=== PATIENT | female | born 1950 | race Caucasian/White ===

== ENCOUNTER 2018-02-03 11:44 | Inpatient (IN) | payer OTHER ==
[2018-02-03 11:49] VITALS: BMI 27.8
--- NOTE | 2018-02-03 14:18 | PDOC ---
History of Present Illness - General Chief Complaint: Bleeding from Anus Stated Complaint: RECTAL BLEED Time Seen by Provider: 02/03/18 13:31 - History of Present Illness Initial Comments: 02/03/18 14:19 67 F with h/o GERD, HTN, anemia, DM, CAD on plavix, presenting to ED with BRBPR. Pt states that she began to have diffuse abdominal pain 2 days ago. This was followed by watery stool with blood clots. Pt also reports nausea without vomiting. Pt had a similar episode last year and was admitted. She has not seen a GI doctor since that admission and has not had a colonoscopy. Pt denies CP/SOB/lightheadedness. Denies hematuria/dysuria. Pt states that she stopped her plavix 2 days ago when she saw blood in her stool. Past History - Past Medical History Allergies/Adverse Reactions: Allergies Allergy/AdvReac Type Severity Reaction Status Date / Time aspirin Allergy Rash Verified 02/03/18 11:45 Home Medications: Ambulatory Orders Sertraline HCl [Zoloft] 100 mg PO DAILY 03/09/12 Meclizine HCl [Bonine] 25 mg PO DAILY PRN 07/04/14 Valsartan [Diovan] 160 mg PO DAILY 07/04/14 Cholecalciferol (Vitamin D3) [Vitamin D -] 2,000 unit PO DAILY 03/01/15 Clopidogrel Bisulfate [Plavix -] 75 mg PO DAILY 03/01/15 Hydroxyzine Pamoate [Vistaril] 100 mg PO DAILY 03/01/15 Albuterol Sulfate Inhaler - [Ventolin HFA Inhaler -] 1 puff IH DAILY 07/28/17 Ascorbic Acid [Vitamin C -] 500 mg PO DAILY 07/28/17 Eletriptan Hydrobromide [Relpax -] 40 mg PO DAILY 07/28/17 Esomeprazole Magnesium 40 mg PO DAILY 07/28/17 Quetiapine Fumarate [Quetiapine Fumarate ER] 50 mg PO DAILY 07/28/17 metroNIDAZOLE [Flagyl -] 500 mg PO TID #80 tablet 07/30/17 Anemia: Yes Asthma: Yes Cardiac Disorders: Yes (? AF) COPD: No DVT: No Dementia: No GI Disorders: Yes (acid reflux) HTN: Yes Hypercholesterolemia: Yes Psychiatric Problems: Yes (anxiety) - Suicide/Smoking/Psychosocial Hx Smoking Status: No Smoking History: Never smoked Have you smoked in the past 12 months: No Number of Cigarettes Smoked Daily: 0 Information on smoking cessation initiated: No Hx Alcohol Use: No Drug/Substance Use Hx: No Substance Use Type: None Hx Substance Use Treatment: No Abd/GI Specific PMHX - Complaint Specific PMHX GERD: Yes Review of Systems - Review of Systems Comments:: 02/03/18 14:22 "GENERAL/CONSTITUTIONAL: No fever or chills. No weakness. HEAD, EYES, EARS, NOSE AND THROAT: No change in vision. No ear pain or discharge. No sore throat. CARDIOVASCULAR: No chest pain or shortness of breath. RESPIRATORY: No cough, wheezing, or hemoptysis. GASTROINTESTINAL: + abdominal pain and BRBPR, No nausea, vomiting, or constipation. GENITOURINARY: No dysuria, frequency, or change in urination. MUSCULOSKELETAL: No joint or muscle swelling or pain. No neck or back pain. SKIN: No rash NEUROLOGIC: No headache, vertigo, loss of consciousness, or change in strength/ sensation. ENDOCRINE: No increased thirst. No abnormal weight change. HEMATOLOGIC/LYMPHATIC: No anemia, easy bleeding, or history of blood clots. ALLERGIC/IMMUNOLOGIC: No hives or skin allergy. " *Physical Exam - Vital Signs Last Vital Signs Temp Pulse Resp BP Pulse Ox 99.2 F 98 H 18 119/79 100 02/03/18 11:46 02/03/18 11:46 02/03/18 11:46 02/03/18 11:46 02/03/18 11:46 - Physical Exam Comments: 02/03/18 14:22 "GENERAL: Awake, alert, and fully oriented, in no acute distress. HEAD: No signs of trauma EYES: PERRLA, EOMI, sclera anicteric, conjunctiva clear ENT: Auricles normal inspection, hearing grossly normal, nares patent, oropharynx clear without exudates. Moist mucosa NECK: Nontender, no stepoffs, Normal ROM, supple, no lymphadenopathy, JVD, or masses LUNGS: Breath sounds equal, clear to auscultation bilaterally. No wheezes, and no crackles HEART: Regular rate and rhythm, normal S1 and S2, no murmurs, rubs or gallops ABDOMEN: + Diffuse abdominal tenderness, L>R RECTAL: + External hemorrhoid non-bleeding, + jailene blood in rectal vault EXTREMITIES: Normal range of motion, no edema. No clubbing or cyanosis. No cords, erythema, or tenderness NEUROLOGICAL: Cranial nerves II through XII intact. 5/5 strength and sensation in all extremities, Normal speech, normal gait, normal cerebellar function SKIN: Warm, Dry, normal turgor, no rashes or lesions noted. " ED Treatment Course - LABORATORY CBC & Chemistry Diagram: 02/03/18 14:20 02/03/18 14:22 Medical Decision Making - Medical Decision Making 02/03/18 14:23 67 F with BRBPR on plavix. Also with diffuse abdominal tenderness on exam. Will r/o colitis vs mesenteric ischemia. - Labs, lactate - CTAP - Admit 02/03/18 18:[address] unremarkable. Will admit to obs for GIB on plavix. 02/03/18 18:32 Rpt CBC ordered. Pt admitted to Dr. Lerma *DC/Admit/Observation/Transfer Diagnosis at time of Disposition: Rectal bleeding - Discharge Dispostion Decision to Admit order: Yes - Referrals Referrals: Jah Anne MD [Primary Care Provider] - - Patient Instructions - Post Discharge Activity - Attestations Physician Attestion: 02/03/18 18:32 I, Dr. Kai Bella MD, attest that this document has been prepared under my direction and personally reviewed by me in its entirety. I further attest, that it accurately reflects all work, treatment, procedures and medical decision -making performed by me.
[2018-02-03 14:27] LABS: BASO % 0.5 % (0-2.0); EOS % 0.3 % (0-4.5); HEMATOCRIT 38.5 % (32.4-45.2); HEMOGLOBIN 12.6 GM/dL (10.7-15.3); LYMPH % 15.8 % (8-40); MCH 29.8 pg (25.7-33.7); MCHC 32.7 g/dl (32.0-36.0); MEAN CELL VOLUME 91.3 fl (80-96); MEAN PLT VOLUME 11.8 fl (7.5-11.1); MONO % 4.2 % (3.8-10.2); NEUT % 79.2 % (42.8-82.8); PLATELET COUNT 137 K/MM3 (134-434); RBC 4.22 M/mm3 (3.60-5.2); WHITE BLOOD COUNT 9.3 K/mm3 (4.0-10.0)
[2018-02-03] MEDS ORDERED: ACETAMINOPHEN 1000 MG/100 ML VIAL (NON FORMULARY) IVPB ONE (14:27)
[2018-02-03] MEDS ORDERED: SODIUM CHLORIDE 1,000 ML IV STA (14:27)
[2018-02-03] MEDS ORDERED: PANTOPRAZOLE SODIUM 40 MG in SODIUM CHLORIDE 100 ML IVPB ONE (14:27)
[2018-02-03 14:42] LABS: INR 0.95 (0.82-1.09); PROTHROMBIN TIME (PATIENT) 10.7 SEC (9.7-13.0)
[2018-02-03 14:45] LABS: ACTIVATED PTT 25.4 SECONDS (26.9-34.4)
[2018-02-03 14:46] LABS: URINE APPEARANCE SLCLOUDY; URINE BILIRUBIN NEGATIVE (<2.0 mg/dL); URINE COLOR YELLOW; URINE GLUCOSE (UA) NEGATIVE (NEGATIVE); URINE KETONE NEGATIVE (NEGATIVE); URINE LEUK ESTERASE NEGATIVE (NEGATIVE); URINE NITRITE NEGATIVE (NEGATIVE); URINE PROTEIN NEGATIVE (NEGATIVE); URINE UROBILINOGEN NEGATIVE mg/dL (0.2-1.0)
[2018-02-03 14:52] LABS: ANION GAP 7 (8-16); BILIRUBIN,TOTAL 0.6 mg/dL (0.2-1.0); BLOOD UREA NITROGEN 22 mg/dL (7-18); CALCIUM 8.5 mg/dL (8.5-10.1); CHLORIDE 105 mmol/L (98-107); CO2 27 mmol/L (21-32); GLUCOSE,RANDOM 100 mg/dL (74-106); LIPASE 156 U/L (73-393); SGPT/ALT 14 U/L (12-78); SODIUM 139 mmol/L (136-145)
[2018-02-03 14:55] LABS: ALK PHOS 60 U/L (45-117)
[2018-02-03 14:57] LABS: POTASSIUM 4.3 mmol/L (3.5-5.1); SGOT/AST 22 U/L (15-37)
[2018-02-03] MEDS ORDERED: PANTOPRAZOLE SODIUM 40 MG/100 ML BAG IVPB ONE (15:03)
[2018-02-03] MEDS ORDERED: ACETAMINOPHEN INJECTION 100 ML IVPB ONE (15:03)
[2018-02-03] MEDS ORDERED: SODIUM CHLORIDE 1,000 ML IV SCH (18:45)
[2018-02-03 19:15] LABS: BASO % 0.5 % (0-2.0); EOS % 0.3 % (0-4.5); HEMATOCRIT 34.4 % (32.4-45.2); HEMOGLOBIN 11.3 GM/dL (10.7-15.3); LYMPH % 25.3 % (8-40); MCH 29.8 pg (25.7-33.7); MCHC 32.7 g/dl (32.0-36.0); MEAN CELL VOLUME 90.9 fl (80-96); MEAN PLT VOLUME 12.4 fl (7.5-11.1); MONO % 6.8 % (3.8-10.2); NEUT % 67.1 % (42.8-82.8); PLATELET COUNT 141 K/MM3 (134-434); RBC 3.78 M/mm3 (3.60-5.2); RDW 14.8 % (11.6-15.6); WHITE BLOOD COUNT 7.7 K/mm3 (4.0-10.0)
--- NOTE | 2018-02-03 20:01 | HP ---
Admitting History and Physical - Primary Care Physician PCP: Steven Lerma - Admission Chief Complaint: rectal bleeding History of Present Illness: 67 F with h/o GERD, HTN, anemia, DM, CAD on plavix, presenting to ED with BRBPR. Pt states that she began to have diffuse abdominal pain 2 days ago. This was followed by watery stool with blood clots. Pt also reports nausea without vomiting. Pt had a similar episode last year and was admitted. She has not seen a GI doctor since that admission and has not had a colonoscopy. h/o similar episodse last year Pt states that she stopped her plavix 2 days ago when she saw blood in her stool. 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) Cardiovascular: Yes: HTN, Hyperlipdemia Pulmonary: Yes: Asthma Gastrointestinal: Yes: GERD, Peptic Ulcer Disease - Past Surgical History Past Surgical History: Yes: Hysterectomy - Smoking History Smoking history: Never smoked Have you smoked in the past 12 months: No Aproximately how many cigarettes per day: 0 - Alcohol/Substance Use Hx Alcohol Use: No History of Substance Use: reports: None - Social History ADL: Independent Occupation: retired History of Recent Travel: No Home Medications - Allergies Allergies/Adverse Reactions: Allergies Allergy/AdvReac Type Severity Reaction Status Date / Time aspirin Allergy Rash Verified 02/03/18 11:45 - Home Medications Home Medications: Ambulatory Orders Sertraline HCl [Zoloft] 100 mg PO DAILY 03/09/12 Meclizine HCl [Bonine] 25 mg PO DAILY PRN 07/04/14 Valsartan [Diovan] 160 mg PO DAILY 07/04/14 Cholecalciferol (Vitamin D3) [Vitamin D -] 2,000 unit PO DAILY 03/01/15 Clopidogrel Bisulfate [Plavix -] 75 mg PO DAILY 03/01/15 Hydroxyzine Pamoate [Vistaril] 100 mg PO DAILY 03/01/15 Albuterol Sulfate Inhaler - [Ventolin HFA Inhaler -] 1 puff IH DAILY PRN Ascorbic Acid [Vitamin C -] 500 mg PO DAILY 07/28/17 Eletriptan Hydrobromide [Relpax -] 40 mg PO DAILY 07/28/17 Esomeprazole Magnesium 40 mg PO DAILY 07/28/17 Quetiapine Fumarate [Quetiapine Fumarate ER] 50 mg PO HS 07/28/17 metroNIDAZOLE [Flagyl -] 500 mg PO TID #80 tablet 07/30/17 Family Disease History - Family Disease History Family Disease History: Heart Disease: Father, Mother Physical Examination Vital Signs: Vital Signs Temperature 99.2 F 02/03/18 11:46 Pulse Rate 98 H 02/03/18 11:46 Respiratory Rate 18 02/03/18 11:46 Blood Pressure 119/79 02/03/18 11:46 O2 Sat by Pulse Oximetry (%) 100 02/03/18 11:46 Constitutional: Yes: No Distress HENT: Yes: Atraumatic Neck: Yes: Supple Cardiovascular: Yes: Regular Rate and Rhythm Respiratory: Yes: CTA Bilaterally Gastrointestinal: Yes: Normal Bowel Sounds, Tenderness Extremities: Yes: WNL Edema: No Peripheral Pulses WNL: Yes Neurological: Yes: Alert, Oriented Labs: CBC, BMP 02/03/18 19:09 02/03/18 14:22 Imaging - Results Cat Scan: Report Reviewed Problem List - Problems (1) Rectal bleeding Assessment/Plan: will monitor gi consult fu cbc Code(s): K62.5 - HEMORRHAGE OF ANUS AND RECTUM (2) Abdominal pain Code(s): R10.9 - UNSPECIFIED ABDOMINAL PAIN (3) Diabetes Code(s): E11.9 - TYPE 2 DIABETES MELLITUS WITHOUT COMPLICATIONS Qualifiers: (4) HTN (hypertension) Code(s): I10 - ESSENTIAL (PRIMARY) HYPERTENSION Qualifiers: Assessment/Plan Laboratory Tests 02/03/18 02/03/18 02/03/18 13:30 14:20 14:20 WBC 9.3 D RBC 4.22 Hgb 12.6 D Hct 38.5 MCV 91.3 MCH 29.8 MCHC 32.7 RDW 15.0 Plt Count 137 D MPV 11.8 H Neutrophils % 79.2 D Lymphocytes % 15.8 D Monocytes % 4.2 Eosinophils % 0.3 Basophils % 0.5 PT with INR 10.70 INR 0.95 PTT (Actin FS) 25.4 L Sodium Potassium Chloride Carbon Dioxide Anion Gap BUN Creatinine Creat Clearance w eGFR Random Glucose Lactic Acid Calcium Total Bilirubin AST ALT Alkaline Phosphatase Creatine Kinase Troponin I Total Protein Albumin Lipase Urine Color Urine Appearance Urine pH Ur Specific Wood Urine Protein Urine Glucose (UA) Urine Ketones Urine Blood Urine Nitrite Urine Bilirubin Urine Urobilinogen Ur Leukocyte Esterase Blood Type B NEGATIVE Antibody Screen Negative 02/03/18 02/03/18 02/03/18 14:20 14:20 14:22 WBC RBC Hgb Hct MCV MCH MCHC RDW Plt Count MPV Neutrophils % Lymphocytes % Monocytes % Eosinophils % Basophils % PT with INR INR PTT (Actin FS) Sodium Cancelled 139 Potassium Cancelled 4.3 Chloride Cancelled 105 Carbon Dioxide Cancelled 27 Anion Gap Cancelled 7 L BUN Cancelled 22 H Creatinine Cancelled 1.0 Creat Clearance w eGFR Cancelled 55.64 Random Glucose Cancelled 100 Lactic Acid 1.4 Calcium Cancelled 8.5 Total Bilirubin Cancelled 0.6 D AST Cancelled 22 ALT Cancelled 14 Alkaline Phosphatase Cancelled 60 Creatine Kinase 133 Troponin I < 0.02 Total Protein Cancelled 8.0 Albumin Cancelled 4.0 Lipase Cancelled 156 Urine Color Urine Appearance Urine pH Ur Specific Wood Urine Protein Urine Glucose (UA) Urine Ketones Urine Blood Urine Nitrite Urine Bilirubin Urine Urobilinogen Ur Leukocyte Esterase Blood Type Antibody Screen 02/03/18 02/03/18 14:27 19:09 WBC 7.7 RBC 3.78 Hgb 11.3 D Hct 34.4 MCV 90.9 MCH 29.8 MCHC 32.7 RDW 14.8 Plt Count 141 MPV 12.4 H Neutrophils % 67.1 Lymphocytes % 25.3 D Monocytes % 6.8 Eosinophils % 0.3 Basophils % 0.5 PT with INR INR PTT (Actin FS) Sodium Potassium Chloride Carbon Dioxide Anion Gap BUN Creatinine Creat Clearance w eGFR Random Glucose Lactic Acid Calcium Total Bilirubin AST ALT Alkaline Phosphatase Creatine Kinase Troponin I Total Protein Albumin Lipase Urine Color Yellow Urine Appearance Slcloudy Urine pH 5.0 D Ur Specific Wood 1.026 Urine Protein Negative Urine Glucose (UA) Negative Urine Ketones Negative Urine Blood Negative Urine Nitrite Negative Urine Bilirubin Negative Urine Urobilinogen Negative Ur Leukocyte Esterase Negative Blood Type Antibody Screen Active Medications Generic Name Dose Route Start Last Admin Trade Name Freq PRN Reason Stop Dose Admin Sodium Chloride 1,000 mls @ 75 mls/hr 02/03/18 18:45 Normal Saline - IV ASDIR [facility]
[2018-02-03] MEDS: SODIUM CHLORIDE 1,000 ML IV SCH (20:39)
[2018-02-03] MEDS ORDERED: ZOLPIDEM TARTRATE 5 MG TABLET PO ONE (23:30)
[2018-02-04 08:19] LABS: BASO % 0.4 % (0-2.0); EOS % 0.7 % (0-4.5); HEMATOCRIT 31.9 % (32.4-45.2); HEMOGLOBIN 10.6 GM/dL (10.7-15.3); LYMPH % 45.5 % (8-40); MCH 30.3 pg (25.7-33.7); MCHC 33.4 g/dl (32.0-36.0); MEAN CELL VOLUME 90.8 fl (80-96); MEAN PLT VOLUME 11.9 fl (7.5-11.1); MONO % 8.4 % (3.8-10.2); PLATELET COUNT 104 K/MM3 (134-434); RBC 3.51 M/mm3 (3.60-5.2); RDW 14.8 % (11.6-15.6); WHITE BLOOD COUNT 5.5 K/mm3 (4.0-10.0)
--- NOTE | 2018-02-04 08:52 | CONSULT ---
Consult Consult Specialty:: General Surgery Referred by:: Florentin LIMON Reason for Consultation:: Rectal bleeding - History of Present Illness Chief Complaint: rectal bleeding History of Present Illness: 67 yo female PMH HTN, DM, obesity, asthma, DVT CAD on plavix, GERD, presenting to ED with BRBPR yesterday. She has a long history of similar episodes 5 since 2012, last was July 2017. With this episode she states that she began to have diffuse abdominal pain 2 days ago prior to bleeding, she was constipated during these days as well. This was followed by watery stool with blood clots. Pt also reports nausea without vomiting, no hematemesis . Surgery has been discussed previously but she considered her lack of insurance as prohibitive. She has not seen a GI doctor since her previous admission and has not had a recent colonoscopy. She states that she stopped her plavix 2 days ago when she saw blood in her stool. No personal history of colon cancer or unexplained weight loss. Previous CT scan 08/09 showed concentric thickening of descending and sigmoid colon. The scan this admission did not have any notable findings. Denied previous abdominal surgery. We were asked to assess. 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) Cardio/Vascular: Yes: HTN, Hyperlipdemia Pulmonary: Yes: Asthma Gastrointestinal: Yes: GERD, Peptic Ulcer Disease - Past Surgical History Past Surgical History: Yes: Hysterectomy - Alcohol/Substance Use Hx Alcohol Use: No History of Substance Use: reports: None - Smoking History Smoking history: Never smoked Have you smoked in the past 12 months: No Aproximately how many cigarettes per day: 0 - Social History ADL: Independent Occupation: retired History of Recent Travel: No Home Medications - Allergies Allergies/Adverse Reactions: Allergies Allergy/AdvReac Type Severity Reaction Status Date / Time aspirin Allergy Rash Verified 02/03/18 11:45 - Home Medications Home Medications: Ambulatory Orders Sertraline HCl [Zoloft] 100 mg PO DAILY 03/09/12 Meclizine HCl [Bonine] 25 mg PO DAILY PRN 07/04/14 Valsartan [Diovan] 160 mg PO DAILY 07/04/14 Cholecalciferol (Vitamin D3) [Vitamin D -] 2,000 unit PO DAILY 03/01/15 Clopidogrel Bisulfate [Plavix -] 75 mg PO DAILY 03/01/15 Hydroxyzine Pamoate [Vistaril] 100 mg PO DAILY 03/01/15 Albuterol Sulfate Inhaler - [Ventolin HFA Inhaler -] 1 puff IH DAILY 07/28/17 Ascorbic Acid [Vitamin C -] 500 mg PO DAILY 07/28/17 Eletriptan Hydrobromide [Relpax -] 40 mg PO DAILY 07/28/17 Esomeprazole Magnesium 40 mg PO DAILY 07/28/17 Quetiapine Fumarate [Quetiapine Fumarate ER] 50 mg PO DAILY 07/28/17 metroNIDAZOLE [Flagyl -] 500 mg PO TID #80 tablet 07/30/17 Family Disease History - Family Disease History Family Disease History: Heart Disease: Father, Mother Review of Systems - Review of Systems Constitutional: denies: Chills, Fever, Unintentional Wgt. Loss Eyes: denies: Blurred Vision, Recent Change in Vision HENT: reports: Difficult Swallowing. denies: Throat Pain Neck: denies: Decreased ROM, Lumps, Tenderness Cardiovascular: denies: Chest Pain Respiratory: denies: Cough, SOB Gastrointestinal: reports: Abdominal Pain, Constipation, Indigestion, Rectal Bleeding Genitourinary: denies: Burning, Discharge, Dysuria Breasts: reports: No Symptoms Reported. denies: Pain Musculoskeletal: denies: Muscle Pain, Muscle Weakness Integumentary: denies: Lesions, Lump, Pruritis Neurological: denies: Headache, Seizure, Syncope Endocrine: denies: Excessive Sweating, Unexplained Weight Gain, Unexplained Weight Loss Hematology/Lymphatic: denies: Easily Bruised, Excessive Bleeding Psychiatric: denies: Anxiety, Depression Physical Exam Vital Signs: Vital Signs Temperature 98.3 F 02/04/18 06:42 Pulse Rate 69 02/04/18 06:42 Respiratory Rate 18 02/04/18 06:42 Blood Pressure 120/53 02/04/18 06:42 O2 Sat by Pulse Oximetry (%) 99 02/03/18 22:46 Vital Signs Period Temp Pulse Resp BP Sys/[place] Pulse Ox Last 24 Hr 98.1 F-99.3 F 67-98 18-20 119-137/53-84 99-100 Constitutional: Yes: No Distress, Calm, Obese Eyes: Yes: Conjunctiva Clear, EOM Intact HENT: Yes: Atraumatic, Normocephalic Neck: Yes: Supple, Trachea Midline Cardiovascular: Yes: Regular Rate and Rhythm, S1, S2 Respiratory: Yes: Regular, CTA Bilaterally Gastrointestinal: Yes: Normal Bowel Sounds, Soft, Abdomen, Obese, Rectal Bleeding. No: Ascites, Distention ...Rectal Exam: Yes: Sphincter Tone Normal. No: Hemorrhoids/External, Inflammation, Mass Renal/: No: CVA Tenderness - Left, CVA Tenderness - Right Extremities: No: Cool, Cyanosis Edema: No Peripheral Pulses WNL: Yes Integumentary: Yes: Venous Stasis Changes. No: Jaundice, Rash Neurological: Yes: Alert, Oriented Psychiatric: Yes: Alert, Oriented Imaging - Results Cat Scan: Report Reviewed, Image Reviewed (no acute pathology identified this scan) Problem List - Problems (1) Rectal bleeding Assessment/Plan: 67 yo female MMP with rectal bleeding and vague abdominal pain, will need better localization of the bleeding source in order to address if this patient should be offered surgery NPO and IVF hydration Type and screen up to date Transfuse as needed GI Evaluation for upper and lower endoscopy during this admission given history will follow for serial exams Thank you for the opportunity to participate in the care of this patient. Code(s): K62.5 - HEMORRHAGE OF ANUS AND RECTUM (2) Asthma Code(s): J45.909 - UNSPECIFIED ASTHMA, UNCOMPLICATED Qualifiers: Asthma severity: mild Asthma persistence: intermittent Asthma complication type: unspecified Qualified Code(s): J45.20 - Mild intermittent asthma, uncomplicated (3) CAD (coronary artery disease) Code(s): I25.10 - ATHSCL HEART DISEASE OF [place] CORONARY ARTERY W/O ANG PCTRS Qualifiers: Coronary Disease-Associated Artery/Lesion type: tribe artery [place] vs. transplanted heart: tribe heart Associated angina: angina presence unspecified Qualified Code(s): I25.10 - Atherosclerotic heart disease of [place] coronary artery without angina pectoris (4) Diabetes Code(s): E11.9 - TYPE 2 DIABETES MELLITUS WITHOUT COMPLICATIONS Qualifiers: (5) Gastritis Code(s): K29.70 - GASTRITIS, UNSPECIFIED, WITHOUT BLEEDING (6) HTN (hypertension) Code(s): I10 - ESSENTIAL (PRIMARY) HYPERTENSION Qualifiers:
[2018-02-04 08:56] LABS: ANION GAP 7 (8-16); BLOOD UREA NITROGEN 16 mg/dL (7-18); CALCIUM 7.8 mg/dL (8.5-10.1); CHLORIDE 109 mmol/L (98-107); CO2 27 mmol/L (21-32); CREATININE 0.7 mg/dL (0.55-1.02); GLUCOSE,RANDOM 85 mg/dL (74-106); POTASSIUM 4.9 mmol/L (3.5-5.1); SGOT/AST 12 U/L (15-37); SGPT/ALT 12 U/L (12-78); SODIUM 143 mmol/L (136-145)
[2018-02-04 08:58] LABS: ALK PHOS 42 U/L (45-117); BILIRUBIN,TOTAL 0.8 mg/dL (0.2-1.0)
[2018-02-04] MEDS: SODIUM CHLORIDE 1,000 ML IV SCH (10:39)
[2018-02-04] MEDS: PANTOPRAZOLE SODIUM 40 MG VIAL IVPUSH SCH (10:39)
--- NOTE | 2018-02-04 11:56 | EKG ---
Test Reason : Blood Pressure : / mmHG Vent. Rate : 065 BPM Atrial Rate : 065 BPM P-R Int : 150 ms QRS Dur : 068 ms QT Int : 420 ms P-R-T Axes : 062 046 064 degrees QTc Int : 436 ms NORMAL SINUS RHYTHM NORMAL ECG WHEN COMPARED WITH ECG OF 28-JUL-2017 10:23, NO SIGNIFICANT CHANGE WAS FOUND Confirmed by MD KRAIG, PHIL ([id number]) on 02/04/2018 11:55:57 AM Referred By: Confirmed By:PHIL CORNELL MD
--- NOTE | 2018-02-04 17:04 | PN ---
Progress Note, Physician History of Present Illness: no bloody stools - Current Medication List Current Medications: Active Medications Acetaminophen (Ofirmev Injection -) 1,000 mg IVPB Q8H PRN PRN Reason: PAIN 4-6 Sodium Chloride (Normal Saline -) 1,000 mls @ 75 mls/hr IV ASDIR [facility] Last Admin: 02/04/18 10:39 Dose: 75 mls/hr Pantoprazole Sodium (Protonix Iv) 40 mg IVPUSH DAILY [facility] Last Admin: 02/04/18 10:39 Dose: 40 mg - Objective Vital Signs: Vital Signs Temperature 98.4 F 02/04/18 13:53 Pulse Rate 68 02/04/18 13:53 Respiratory Rate 18 02/04/18 13:53 Blood Pressure 121/69 02/04/18 13:53 O2 Sat by Pulse Oximetry (%) 99 02/03/18 22:46 Constitutional: Yes: No Distress HENT: Yes: Atraumatic Neck: Yes: Supple Cardiovascular: Yes: Regular Rate and Rhythm Respiratory: Yes: CTA Bilaterally Gastrointestinal: Yes: Normal Bowel Sounds, Tenderness (llq much improved) Extremities: Yes: WNL Edema: No Peripheral Pulses WNL: Yes Neurological: Yes: Alert, Oriented Labs: CBC, BMP 02/04/18 06:50 02/04/18 06:50 INR, PTT INR 0.95 (0.82-1.09) 02/03/18 14:20 Problem List - Problems (1) Rectal bleeding Assessment/Plan: will monitor...no more bloody stolls gi consult fu cbc Code(s): K62.5 - HEMORRHAGE OF ANUS AND RECTUM (2) Abdominal pain Code(s): R10.9 - UNSPECIFIED ABDOMINAL PAIN (3) Diabetes Assessment/Plan: stable Code(s): E11.9 - TYPE 2 DIABETES MELLITUS WITHOUT COMPLICATIONS Qualifiers: (4) HTN (hypertension) Assessment/Plan: stable , not on any meds Code(s): I10 - ESSENTIAL (PRIMARY) HYPERTENSION Qualifiers:
[2018-02-04] MEDS: ACETAMINOPHEN 1000 MG/100 ML VIAL (NON FORMULARY) IVPB PRN (17:32)
[2018-02-04] MEDS: SERTRALINE HCL 50 MG TABLET (FP) PO SCH (18:39)
--- NOTE | 2018-02-04 20:02 | CON.GI ---
Consult Consult Specialty:: GI Reason for Consultation:: gastrointestinal bleeding, chronic - History of Present Illness History of Present Illness: chart reviewed. Events noted. As per initial intake: 67 yo female PMH HTN, DM , obesity, asthma, DVT CAD on plavix, GERD, presenting to ED with BRBPR yesterday. She has had 5 episodes since 2012. With this episode she began to have diffuse abdominal pain 2 days ago prior to bleeding. This was followed by watery stool with blood clots. Pt also reports nausea without vomiting, no hematemesis . She has not seen a GI doctor since her previous admission and has not had a recent colonoscopy. She states that she stopped her plavix 2 days ago when she saw blood in her stool. No personal history of colon cancer or unexplained weight loss. Previous CT scan 08/09 showed concentric thickening of descending and sigmoid colon. The scan this admission did not have any notable findings. Denied previous abdominal surgery. We were asked to assess. At the time of this exam patient reports no abdominal symptoms, or ongoing bleeding. Tolerating liquid diet. Denies dysphagia, odynophagia, nausea, jaundice, low-grade fever, unintentional weight loss, changes in stool caliber, melena between episodes of bleeding. No history of gastric, duodenal ulcers, esophagitis, gastritis, diverticulosis, angiectasia, significant intracolonic lesions otherwise. A prior CAT scan as above. Negative CT on this admission. No recent endoscopic workup. On antiplatelet therapy at home. - History Source History Provided By: Patient, Medical Record - Past Medical History [employer]: Yes: Other (migraine) Cardio/Vascular: Yes: HTN, Hyperlipdemia Pulmonary: Yes: Asthma Gastrointestinal: Yes: GERD, Peptic Ulcer Disease - Past Surgical History Past Surgical History: Yes: Hysterectomy - Alcohol/Substance Use Hx Alcohol Use: No History of Substance Use: reports: None - Smoking History Smoking history: Never smoked Have you smoked in the past 12 months: No Aproximately how many cigarettes per day: 0 - Social History ADL: Independent Occupation: retired History of Recent Travel: No Home Medications - Allergies Allergies/Adverse Reactions: Allergies Allergy/AdvReac Type Severity Reaction Status Date / Time aspirin Allergy Rash Verified 02/03/18 11:45 - Home Medications Home Medications: Ambulatory Orders Sertraline HCl [Zoloft] 100 mg PO DAILY 03/09/12 Meclizine HCl [Bonine] 25 mg PO DAILY PRN 07/04/14 Valsartan [Diovan] 160 mg PO DAILY 07/04/14 Cholecalciferol (Vitamin D3) [Vitamin D -] 2,000 unit PO DAILY 03/01/15 Clopidogrel Bisulfate [Plavix -] 75 mg PO DAILY 03/01/15 Hydroxyzine Pamoate [Vistaril] 100 mg PO DAILY 03/01/15 Albuterol Sulfate Inhaler - [Ventolin HFA Inhaler -] 1 puff IH DAILY PRN Ascorbic Acid [Vitamin C -] 500 mg PO DAILY 07/28/17 Eletriptan Hydrobromide [Relpax -] 40 mg PO DAILY 07/28/17 Esomeprazole Magnesium 40 mg PO DAILY 07/28/17 Quetiapine Fumarate [Quetiapine Fumarate ER] 50 mg PO HS 07/28/17 metroNIDAZOLE [Flagyl -] 500 mg PO TID #80 tablet 07/30/17 Family Disease History - Family Disease History Family History: Unremarkable Family Disease History: Heart Disease: Father, Mother Review of Systems Findings/Remarks: As per H&P and HPI Physical Exam-GI Vital Signs: Vital Signs Temperature 98.3 F 02/04/18 17:10 Pulse Rate 69 02/04/18 17:10 Respiratory Rate 18 02/04/18 17:10 Blood Pressure 123/77 02/04/18 17:10 O2 Sat by Pulse Oximetry (%) 99 02/04/18 09:00 Constitutional: Yes: Well Nourished, No Distress, Calm Eyes: Yes: Conjunctiva Clear HENT: Yes: Atraumatic Neck: Yes: Supple Cardiovascular: Yes: Regular Rate and Rhythm Respiratory: Yes: Regular ...Auscultate: Yes: Normoactive Bowel Sounds ...Palpate: Yes: Soft. No: Firm/Rigid, Guarding, Mass, Tenderness, Tenderness, Rebound Neurological: Yes: Alert, Oriented Labs: CBC, BMP 02/04/18 06:50 02/04/18 06:50 INR, PTT INR 0.95 (0.82-1.09) 02/03/18 14:20 Laboratory Last Values WBC 5.5 K/mm3 (4.0-10.0) 02/04/18 06:50 RBC 3.51 M/mm3 (3.60-5.2) L 02/04/18 06:50 Hgb 10.6 GM/dL (10.7-15.3) L 02/04/18 06:50 Hct 31.9 % (32.4-45.2) L 02/04/18 06:50 MCV 90.8 fl (80-96) 02/04/18 06:50 MCH 30.3 pg (25.7-33.7) 02/04/18 06:50 MCHC 33.4 g/dl (32.0-36.0) 02/04/18 06:50 RDW 14.8 % (11.6-15.6) 02/04/18 06:50 Plt Count 104 K/MM3 (134-434) L D 02/04/18 06:50 MPV 11.9 fl (7.5-11.1) H 02/04/18 06:50 Neutrophils % 45.0 % (42.8-82.8) D 02/04/18 06:50 Lymphocytes % 45.5 % (8-40) H D 02/04/18 06:50 Monocytes % 8.4 % (3.8-10.2) 02/04/18 06:50 Eosinophils % 0.7 % (0-4.5) D 02/04/18 06:50 Basophils % 0.4 % (0-2.0) 02/04/18 06:50 PT with INR 10.70 SEC (9.7-13.0) 02/03/18 14:20 INR 0.95 (0.82-1.09) 02/03/18 14:20 PTT (Actin FS) 25.4 SECONDS (26.9-34.4) L 02/03/18 14:20 Sodium 143 mmol/L (136-145) 02/04/18 06:50 Potassium 4.9 mmol/L (3.5-5.1) 02/04/18 06:50 Chloride 109 mmol/L (98-107) H 02/04/18 06:50 Carbon Dioxide 27 mmol/L (21-32) 02/04/18 06:50 Anion Gap 7 (8-16) L 02/04/18 06:50 BUN 16 mg/dL (7-18) 02/04/18 06:50 Creatinine 0.7 mg/dL (0.55-1.02) 02/04/18 06:50 Creat Clearance w eGFR > 60 (>60) 02/04/18 06:50 POC Glucometer 102 UNITS (80-120) 02/04/18 11:37 Random Glucose 85 mg/dL (74-106) 02/04/18 06:50 Lactic Acid 1.4 mmol/L (0.0-2.0) 02/03/18 14:20 Calcium 7.8 mg/dL (8.5-10.1) L 02/04/18 06:50 Total Bilirubin 0.8 mg/dL (0.2-1.0) D 02/04/18 06:50 AST 12 U/L (15-37) L 02/04/18 06:50 ALT 12 U/L (12-78) 02/04/18 06:50 Alkaline Phosphatase 42 U/L (45-117) L 02/04/18 06:50 Creatine Kinase 133 IU/L (26-192) 02/03/18 14:22 Troponin I < 0.02 ng/ml (0.00-0.05) 02/03/18 14:22 Total Protein 6.0 g/dl (6.4-8.2) L 02/04/18 06:50 Albumin 3.0 g/dl (3.4-5.0) L 02/04/18 06:50 Lipase 156 U/L (73-393) 02/03/18 14:22 Urine Color Yellow 02/03/18 14:27 Urine Appearance Slcloudy 02/03/18 14:27 Urine pH 5.0 (5.0-8.0) D 02/03/18 14:27 Ur Specific [place] 1.026 (1.001-1.035) 02/03/18 14:27 Urine Protein Negative (NEGATIVE) 02/03/18 14:27 Urine Glucose (UA) Negative (NEGATIVE) 02/03/18 14:27 Urine Ketones Negative (NEGATIVE) 02/03/18 14:27 Urine Blood Negative (NEGATIVE) 02/03/18 14:27 Urine Nitrite Negative (NEGATIVE) 02/03/18 14:27 Urine Bilirubin Negative (<2.0 mg/dL) 02/03/18 14:27 Urine Urobilinogen Negative mg/dL (0.2-1.0) 02/03/18 14:27 Ur Leukocyte Esterase Negative (NEGATIVE) 02/03/18 14:27 Blood Type B NEGATIVE 02/03/18 13:30 Antibody Screen Negative 02/03/18 13:30 Imaging - Results Cat Scan: Report Reviewed Problem List - Problems (1) Hematochezia Code(s): K92.1 - MELENA (2) Adverse effect of antiplatelet agent Code(s): T45.7X5A - ADVERSE EFFECT OF ANTICOAG ANTAG, VIT K AND OTH COAG, INIT Assessment/Plan A 67-year-old female on antiplatelet therapy with bright red blood per rectum and generalized abdominal pain. Hemoglobin decrease by 2 g since admission. At the time of the exam no stigmata of ongoing gastrointestinal bleed. Asymptomatic. Bleeding appears to be recurrent per history. Plan upper and lower endoscopy to evaluate for intraluminal lesions including malignancy. EGD and colonoscopy discussed with the patient. She agrees with the plan. ( Indonesian-speaking)
[2018-02-04] MEDS: FLUTICASONE/SALMETEROL 100 MCG/50 MCG DISKUS IH SCH (21:33)
[2018-02-05] MEDS: ACETAMINOPHEN 1000 MG/100 ML VIAL (NON FORMULARY) IVPB PRN ×2 (03:18→23:13)
--- NOTE | 2018-02-05 07:28 | PN ---
Progress Note, Physician Chief Complaint: LGIB and abdominal pain History of Present Illness: 67 yo female PMH HTN, DM, obesity, asthma, DVT CAD on plavix, GERD, presenting to ED with BRBPR yesterday. stable overnight, no more bloody BM. - Current Medication List Current Medications: Active Medications Acetaminophen (Ofirmev Injection -) 1,000 mg IVPB Q8H PRN PRN Reason: PAIN 4-6 Last Admin: 02/05/18 03:18 Dose: 1,000 mg Sodium Chloride (Normal Saline -) 1,000 mls @ 75 mls/hr IV ASDIR [facility]ANNA Last Admin: 02/05/18 00:00 Dose: 75 mls/hr Pantoprazole Sodium (Protonix Iv) 40 mg IVPUSH DAILY [facility] Last Admin: 02/04/18 10:39 Dose: 40 mg Quetiapine Fumarate (Seroquel Xr -) 50 mg PO DAILY [facility] Last Admin: 02/04/18 21:33 Dose: 50 mg Fluticasone/Salmeterol (Advair 100mcg/50mcg -) 1 puff IH BID [facility] Last Admin: 02/04/18 21:33 Dose: 1 puff Sertraline HCl (Zoloft -) 100 mg PO DAILY [facility] Last Admin: 02/04/18 18:39 Dose: 100 mg - Objective Vital Signs: Vital Signs Temperature 98.1 F 02/05/18 06:00 Pulse Rate 58 L 02/05/18 06:00 Respiratory Rate 20 02/05/18 06:00 Blood Pressure 103/51 02/05/18 06:00 O2 Sat by Pulse Oximetry (%) 98 02/04/18 21:00 Vital Signs Period Temp Pulse Resp BP Sys/Escobedo Pulse Ox Last 24 Hr 97.7 F-98.9 F 58-69 18-20 103-127/51-78 98-99 Intake & Output 02/04/18 02/04/18 02/05/18 15:59 23:59 07:59 Intake Total 600 375 525 Balance 600 375 525 Intake: IV 600 375 525 Normal Saline - 1,000 ml 600 375 525 @ 75 mls/hr IV ASDIR ROSANNA Rx#:[id number] Oral 0 Other: Voiding Method Toilet Toilet # Unmeasured Voids Void 3 Bowel Movement No Yes # Bowel Movements 1 Constitutional: Yes: Well Nourished, No Distress, Calm Eyes: Yes: Conjunctiva Clear, EOM Intact HENT: Yes: Atraumatic, Normocephalic Neck: Yes: Supple, Trachea Midline Cardiovascular: Yes: Regular Rate and Rhythm, S1, S2 Respiratory: Yes: Regular, CTA Bilaterally Gastrointestinal: Yes: Normal Bowel Sounds, Soft, Abdomen, Obese. No: Distention, Rectal Bleeding, Tenderness, Tenderness, Epigastrium, Tenderness, Rebound, Vomiting ...Rectal Exam: Yes: Deferred Genitourinary: No: CVA Tenderness - Left, CVA Tenderness - Right Extremities: No: Cool, Cyanosis Edema: No Peripheral Pulses WNL: Yes Integumentary: No: Jaundice, Rash Neurological: Yes: Alert, Oriented Psychiatric: Yes: Alert, Oriented Labs: CBC, BMP 02/04/18 06:50 02/04/18 06:50 INR, PTT INR 0.95 (0.82-1.09) 02/03/18 14:20 Problem List - Problems (1) Rectal bleeding Assessment/Plan: 67 yo female MMP with rectal bleeding and vague abdominal pain, will need better localization of the bleeding source in order to address if this patient should be offered surgery. Appreciate GI evaluation. NPO and IVF hydration Type and screen up to date Transfuse as needed Bowel prep for upper and lower endoscopy will follow for serial exams Code(s): K62.5 - HEMORRHAGE OF ANUS AND RECTUM (2) Asthma Code(s): J45.909 - UNSPECIFIED ASTHMA, UNCOMPLICATED Qualifiers: Asthma severity: mild Asthma persistence: intermittent Asthma complication type: unspecified Qualified Code(s): J45.20 - Mild intermittent asthma, uncomplicated (3) CAD (coronary artery disease) Code(s): I25.10 - ATHSCL HEART DISEASE OF [place] CORONARY ARTERY W/O ANG PCTRS Qualifiers: Coronary Disease-Associated Artery/Lesion type: [place] artery [place] vs. transplanted heart: [place] heart Associated angina: angina presence unspecified Qualified Code(s): I25.10 - Atherosclerotic heart disease of [place] coronary artery without angina pectoris (4) Diabetes Code(s): E11.9 - TYPE 2 DIABETES MELLITUS WITHOUT COMPLICATIONS Qualifiers: (5) Gastritis Code(s): K29.70 - GASTRITIS, UNSPECIFIED, WITHOUT BLEEDING (6) HTN (hypertension) Code(s): I10 - ESSENTIAL (PRIMARY) HYPERTENSION Qualifiers:
[2018-02-05 08:01] LABS: BASO % 0.4 % (0-2.0); EOS % 0.9 % (0-4.5); HEMATOCRIT 30.9 % (32.4-45.2); HEMOGLOBIN 10.3 GM/dL (10.7-15.3); LYMPH % 61.2 % (8-40); MCH 30.5 pg (25.7-33.7); MCHC 33.4 g/dl (32.0-36.0); MEAN CELL VOLUME 91.3 fl (80-96); MEAN PLT VOLUME 11.5 fl (7.5-11.1); MONO % 8.9 % (3.8-10.2); NEUT % 28.6 % (42.8-82.8); PLATELET COUNT 101 K/MM3 (134-434); RBC 3.38 M/mm3 (3.60-5.2); RDW 14.8 % (11.6-15.6); WHITE BLOOD COUNT 3.8 K/mm3 (4.0-10.0)
[2018-02-05 08:12] LABS: INR 0.99 (0.82-1.09); PROTHROMBIN TIME (PATIENT) 11.2 SEC (9.7-13.0)
[2018-02-05 08:29] LABS: CHLORIDE 109 mmol/L (98-107); POTASSIUM 4.3 mmol/L (3.5-5.1); SODIUM 143 mmol/L (136-145)
[2018-02-05 08:37] LABS: ALBUMIN 3.1 g/dl (3.4-5.0); ALK PHOS 39 U/L (45-117); ANION GAP 5 (8-16); BILIRUBIN,TOTAL 0.6 mg/dL (0.2-1.0); BLOOD UREA NITROGEN 8 mg/dL (7-18); CALCIUM 7.6 mg/dL (8.5-10.1); CO2 29 mmol/L (21-32); CREATININE 0.8 mg/dL (0.55-1.02); GLUCOSE,RANDOM 84 mg/dL (74-106); SGOT/AST 15 U/L (15-37); SGPT/ALT 12 U/L (12-78)
--- NOTE | 2018-02-05 09:16 | PN ---
Progress Note, Physician History of Present Illness: no acute events overnight. - Current Medication List Current Medications: Active Medications Acetaminophen (Ofirmev Injection -) 1,000 mg IVPB Q8H PRN PRN Reason: PAIN 4-6 Last Admin: 02/05/18 03:18 Dose: 1,000 mg Sodium Chloride (Normal Saline -) 1,000 mls @ 75 mls/hr IV ASDIR [facility] Last Admin: 02/05/18 00:00 Dose: 75 mls/hr Pantoprazole Sodium (Protonix Iv) 40 mg IVPUSH DAILY [facility] Last Admin: 02/04/18 10:39 Dose: 40 mg Quetiapine Fumarate (Seroquel Xr -) 50 mg PO DAILY [facility] Last Admin: 02/04/18 21:33 Dose: 50 mg Fluticasone/Salmeterol (Advair 100mcg/50mcg -) 1 puff IH BID [facility] Last Admin: 02/04/18 21:33 Dose: 1 puff Sertraline HCl (Zoloft -) 100 mg PO DAILY [facility] Last Admin: 02/04/18 18:39 Dose: 100 mg - Objective Vital Signs: Vital Signs Temperature 98.1 F 02/05/18 06:00 Pulse Rate 58 L 02/05/18 06:00 Respiratory Rate 20 02/05/18 06:00 Blood Pressure 103/51 02/05/18 06:00 O2 Sat by Pulse Oximetry (%) 98 02/04/18 21:00 Constitutional: Yes: Well Nourished, No Distress, Calm Eyes: Yes: Conjunctiva Clear HENT: Yes: Atraumatic Neck: Yes: Supple Cardiovascular: Yes: Regular Rate and Rhythm. No: Bradycardia, Tachycardia Respiratory: Yes: Regular Gastrointestinal: Yes: Normal Bowel Sounds, Soft Labs: CBC, BMP 02/05/18 07:00 02/05/18 07:00 INR, PTT INR 0.99 (0.82-1.09) 02/05/18 07:00 Laboratory Last Values WBC 3.8 K/mm3 (4.0-10.0) L D 02/05/18 07:00 RBC 3.38 M/mm3 (3.60-5.2) L 02/05/18 07:00 Hgb 10.3 GM/dL (10.7-15.3) L 02/05/18 07:00 Hct 30.9 % (32.4-45.2) L 02/05/18 07:00 MCV 91.3 fl (80-96) 02/05/18 07:00 MCH 30.5 pg (25.7-33.7) 02/05/18 07:00 MCHC 33.4 g/dl (32.0-36.0) 02/05/18 07:00 RDW 14.8 % (11.6-15.6) 02/05/18 07:00 Plt Count 101 K/MM3 (134-434) L 02/05/18 07:00 MPV 11.5 fl (7.5-11.1) H 02/05/18 07:00 Neutrophils % 28.6 % (42.8-82.8) L D 02/05/18 07:00 Lymphocytes % 61.2 % (8-40) H D 02/05/18 07:00 Monocytes % 8.9 % (3.8-10.2) 02/05/18 07:00 Eosinophils % 0.9 % (0-4.5) 02/05/18 07:00 Basophils % 0.4 % (0-2.0) 02/05/18 07:00 PT with INR 11.20 SEC (9.7-13.0) 02/05/18 07:00 INR 0.99 (0.82-1.09) 02/05/18 07:00 PTT (Actin FS) 25.4 SECONDS (26.9-34.4) L 02/03/18 14:20 Sodium 143 mmol/L (136-145) 02/05/18 07:00 Potassium 4.3 mmol/L (3.5-5.1) 02/05/18 07:00 Chloride 109 mmol/L (98-107) H 02/05/18 07:00 Carbon Dioxide 29 mmol/L (21-32) 02/05/18 07:00 Anion Gap 5 (8-16) L 02/05/18 07:00 BUN 8 mg/dL (7-18) 02/05/18 07:00 Creatinine 0.8 mg/dL (0.55-1.02) 02/05/18 07:00 Creat Clearance w eGFR > 60 (>60) 02/05/18 07:00 POC Glucometer 102 UNITS (80-120) 02/04/18 11:37 Random Glucose 84 mg/dL (74-106) 02/05/18 07:00 Lactic Acid 1.4 mmol/L (0.0-2.0) 02/03/18 14:20 Calcium 7.6 mg/dL (8.5-10.1) L 02/05/18 07:00 Total Bilirubin 0.6 mg/dL (0.2-1.0) D 02/05/18 07:00 AST 15 U/L (15-37) 02/05/18 07:00 ALT 12 U/L (12-78) 02/05/18 07:00 Alkaline Phosphatase 39 U/L (45-117) L 02/05/18 07:00 Creatine Kinase 133 IU/L (26-192) 02/03/18 14:22 Troponin I < 0.02 ng/ml (0.00-0.05) 02/03/18 14:22 Total Protein 6.0 g/dl (6.4-8.2) L 02/05/18 07:00 Albumin 3.1 g/dl (3.4-5.0) L 02/05/18 07:00 Lipase 156 U/L (73-393) 02/03/18 14:22 Urine Color Yellow 02/03/18 14: Urine Appearance Slcloudy 02/03/18 14:27 Urine pH 5.0 (5.0-8.0) D 02/03/18 14:27 Ur Specific [place] 1.026 (1.001-1.035) 02/03/18 14:27 Urine Protein Negative (NEGATIVE) 02/03/18 14:27 Urine Glucose (UA) Negative (NEGATIVE) 02/03/18 14:27 Urine Ketones Negative (NEGATIVE) 02/03/18 14: Urine Blood Negative (NEGATIVE) 02/03/18 14: Urine Nitrite Negative (NEGATIVE) 02/03/18 14: Urine Bilirubin Negative (<2.0 mg/dL) 02/03/18 14: Urine Urobilinogen Negative mg/dL (0.2-1.0) 02/03/18 14:27 Ur Leukocyte Esterase Negative (NEGATIVE) 02/03/18 14:27 Blood Type B NEGATIVE 02/03/18 13:30 Antibody Screen Negative 02/03/18 13:30 Problem List - Problems (1) Hematochezia Code(s): K92.1 - MELENA (2) Adverse effect of antiplatelet agent Code(s): T45.7X5A - ADVERSE EFFECT OF ANTICOAG ANTAG, VIT K AND OTH COAG, INIT Assessment/Plan Clear liquid diet and bowel prep today. EGD and colonoscopy tomorrow discussed with the patient in detail. She agrees with the plan.
[2018-02-05] MEDS ORDERED: PT OWN MED DRAWER 7, Y5N ONE ×2 (09:22→19:47)
[2018-02-05] MEDS: SODIUM CHLORIDE 1,000 ML IV SCH ×3 (09:25→13:37)
[2018-02-05] MEDS: FLUTICASONE/SALMETEROL 100 MCG/50 MCG DISKUS IH SCH ×2 (09:26→21:34)
[2018-02-05] MEDS: SERTRALINE HCL 50 MG TABLET (FP) PO SCH (09:27)
[2018-02-05] MEDS: PANTOPRAZOLE SODIUM 40 MG VIAL IVPUSH SCH (09:27)
[2018-02-05] MEDS ORDERED: BISACODYL 5 MG TABLET.DR (FP) PO ONE (15:00)
[2018-02-05] MEDS: PEG 3350/NA SULF BICARB CL/KCL 4000 ML SOLN.RECON PO ONE ×2 (15:48→17:18)
--- NOTE | 2018-02-05 18:48 | PN ---
Progress Note, Physician History of Present Illness: no bloody stools on bowel prep for colonoscopy and egd in am - Current Medication List Current Medications: Active Medications Acetaminophen (Ofirmev Injection -) 1,000 mg IVPB Q8H PRN PRN Reason: PAIN 4-6 Last Admin: 02/05/18 03:18 Dose: 1,000 mg Sodium Chloride (Normal Saline -) 1,000 mls @ 75 mls/hr IV ASDIR [facility] Last Admin: 02/05/18 13:37 Dose: 75 mls/hr Pantoprazole Sodium (Protonix Iv) 40 mg IVPUSH DAILY [facility] Last Admin: 02/05/18 09:27 Dose: 40 mg Quetiapine Fumarate (Seroquel Xr -) 50 mg PO DAILY [facility] Last Admin: 02/05/18 09:27 Dose: 50 mg Fluticasone/Salmeterol (Advair 100mcg/50mcg -) 1 puff IH BID [facility] Last Admin: 02/05/18 09:26 Dose: 1 puff Sertraline HCl (Zoloft -) 100 mg PO DAILY [facility] Last Admin: 02/05/18 09:27 Dose: 100 mg - Objective Vital Signs: Vital Signs Temperature 97.8 F 02/05/18 16:32 Pulse Rate 60 02/05/18 16:32 Respiratory Rate 20 02/05/18 16:32 Blood Pressure 135/80 02/05/18 16:32 O2 Sat by Pulse Oximetry (%) 97 02/05/18 09:00 Constitutional: Yes: No Distress HENT: Yes: Atraumatic Neck: Yes: Supple Cardiovascular: Yes: Regular Rate and Rhythm Respiratory: Yes: CTA Bilaterally Gastrointestinal: Yes: Normal Bowel Sounds Extremities: Yes: WNL Edema: No Peripheral Pulses WNL: Yes Neurological: Yes: Alert, Oriented Labs: CBC, BMP 02/05/18 07:00 02/05/18 07:00 INR, PTT INR 0.99 (0.82-1.09) 02/05/18 07:00 Problem List - Problems (1) Rectal bleeding Assessment/Plan: no more bloody stools for colonoscopy and egd in am Code(s): K62.5 - HEMORRHAGE OF ANUS AND RECTUM (2) Abdominal pain Code(s): R10.9 - UNSPECIFIED ABDOMINAL PAIN (3) Diabetes Code(s): E11.9 - TYPE 2 DIABETES MELLITUS WITHOUT COMPLICATIONS Qualifiers: (4) HTN (hypertension) Assessment/Plan: stable , not on any meds Code(s): I10 - ESSENTIAL (PRIMARY) HYPERTENSION Qualifiers:
--- NOTE | 2018-02-06 09:55 | PN ---
Progress Note, Physician Chief Complaint: LGIB and abdominal pain History of Present Illness: 67 yo female PMH HTN, DM, obesity, asthma, DVT CAD on plavix, GERD, presenting to ED with BRBPR yesterday. stable overnight, no more bloody BM. Plan for endoscopu today. - Current Medication List Current Medications: Active Medications Acetaminophen (Ofirmev Injection -) 1,000 mg IVPB Q8H PRN PRN Reason: PAIN 4-6 Last Admin: 02/05/18 23:13 Dose: 1,000 mg Sodium Chloride (Normal Saline -) 1,000 mls @ 75 mls/hr IV ASDIR [facility] Last Admin: 02/05/18 13:37 Dose: 75 mls/hr Pantoprazole Sodium (Protonix Iv) 40 mg IVPUSH DAILY [facility] Last Admin: 02/05/18 09:27 Dose: 40 mg Quetiapine Fumarate (Seroquel Xr -) 50 mg PO HS [facility] Fluticasone/Salmeterol (Advair 100mcg/50mcg -) 1 puff IH BID [facility] Last Admin: 02/05/18 21:34 Dose: 1 puff Sertraline HCl (Zoloft -) 100 mg PO DAILY [facility] Last Admin: 02/05/18 09:27 Dose: 100 mg - Objective Vital Signs: Vital Signs Temperature 98.2 F 02/06/18 08:55 Pulse Rate 71 02/06/18 08:55 Respiratory Rate 18 02/06/18 08:55 Blood Pressure 137/71 02/06/18 08:55 O2 Sat by Pulse Oximetry (%) 97 02/05/18 21:00 Vital Signs Period Temp Pulse Resp BP Sys/[place] Pulse Ox Last 24 Hr 97.8 F-98.6 F 60-71 18-22 134-150/71-82 97 Constitutional: Yes: Well Nourished, No Distress, Calm Eyes: Yes: Conjunctiva Clear, EOM Intact HENT: Yes: Atraumatic, Normocephalic Neck: Yes: Supple, Trachea Midline Cardiovascular: Yes: Regular Rate and Rhythm, S1, S2 Respiratory: Yes: Regular, CTA Bilaterally Gastrointestinal: Yes: Normal Bowel Sounds, Soft, Tenderness, Other (empty vault ) ...Rectal Exam: Yes: Sphincter Tone Normal. No: Hemorrhoids/External, Inflammation, Mass Genitourinary: No: CVA Tenderness - Left, CVA Tenderness - Right Extremities: No: Cool, Cyanosis Edema: No Peripheral Pulses WNL: Yes Peripheral Pulses: Left Doralis Pedis: 2+, Right Dorsalis Pedis: 2+ Integumentary: No: Jaundice, Rash Neurological: Yes: Alert, Oriented Psychiatric: Yes: Alert, Oriented Labs: CBC, BMP 02/05/18 07:00 02/05/18 07:00 INR, PTT INR 0.99 (0.82-1.09) 02/05/18 07:00 Problem List - Problems (1) Rectal bleeding Assessment/Plan: 67 yo female MMP with rectal bleeding and vague abdominal pain, will need better localization of the bleeding source in order to address if this patient should be offered surgery. Appreciate GI evaluation. Has not been transfused. Colonoscopy - non bleeding rectal varix, scattered diverticulum sigmoid, EGD - gastritis. NPO and IVF hydration Type and screen Bowel prep for upper and lower endoscopy will follow endoscopy GI prophylaxsis - consider PPI Discharge planning Surgical followup Code(s): K62.5 - HEMORRHAGE OF ANUS AND RECTUM (2) Asthma Code(s): J45.909 - UNSPECIFIED ASTHMA, UNCOMPLICATED Qualifiers: Asthma severity: mild Asthma persistence: intermittent Asthma complication type: unspecified Qualified Code(s): J45.20 - Mild intermittent asthma, uncomplicated (3) CAD (coronary artery disease) Code(s): I25.10 - ATHSCL HEART DISEASE OF [place] CORONARY ARTERY W/O ANG PCTRS Qualifiers: Coronary Disease-Associated Artery/Lesion type: [place] artery [place] vs. transplanted heart: [place] heart Associated angina: angina presence unspecified Qualified Code(s): I25.10 - Atherosclerotic heart disease of [place] coronary artery without angina pectoris (4) Diabetes Code(s): E11.9 - TYPE 2 DIABETES MELLITUS WITHOUT COMPLICATIONS Qualifiers: (5) Gastritis Code(s): K29.70 - GASTRITIS, UNSPECIFIED, WITHOUT BLEEDING (6) HTN (hypertension) Code(s): I10 - ESSENTIAL (PRIMARY) HYPERTENSION Qualifiers:
[2018-02-06] MEDS: SODIUM CHLORIDE 1,000 ML IV SCH ×2 (11:40→20:51)
[2018-02-06] MEDS: PANTOPRAZOLE SODIUM 40 MG VIAL IVPUSH SCH (11:40)
[2018-02-06] MEDS: SERTRALINE HCL 50 MG TABLET (FP) PO SCH (12:09)
[2018-02-06] MEDS: FLUTICASONE/SALMETEROL 100 MCG/50 MCG DISKUS IH SCH (12:10)
--- NOTE | 2018-02-06 19:53 | PN ---
Progress Note, Physician History of Present Illness: doing well - Current Medication List Current Medications: Active Medications Acetaminophen (Ofirmev Injection -) 1,000 mg IVPB Q8H PRN PRN Reason: PAIN 4-6 Last Admin: 02/05/18 23:13 Dose: 1,000 mg Sodium Chloride (Normal Saline -) 1,000 mls @ 75 mls/hr IV ASDIR [facility] Last Admin: 02/06/18 11:40 Dose: Not Given Pantoprazole Sodium (Protonix -) 20 mg PO DAILY [facility] Polyethylene Glycol (Miralax (For Daily Use) -) 17 gm PO DAILY [facility] Quetiapine Fumarate (Seroquel Xr -) 50 mg PO HS [facility] Fluticasone/Salmeterol (Advair 100mcg/50mcg -) 1 puff IH BID [facility] Last Admin: 02/06/18 12:10 Dose: 1 puff Sertraline HCl (Zoloft -) 100 mg PO DAILY [facility] Last Admin: 02/06/18 12:09 Dose: 100 mg - Objective Vital Signs: Vital Signs Temperature 98.8 F 02/06/18 17:44 Pulse Rate 72 02/06/18 17:44 Respiratory Rate 20 02/06/18 17:44 Blood Pressure 150/90 02/06/18 17:44 O2 Sat by Pulse Oximetry (%) 98 02/06/18 11:07 Constitutional: Yes: No Distress HENT: Yes: Atraumatic Neck: Yes: Supple Cardiovascular: Yes: Regular Rate and Rhythm Respiratory: Yes: CTA Bilaterally Gastrointestinal: Yes: Normal Bowel Sounds Extremities: Yes: WNL Neurological: Yes: Alert, Oriented Labs: CBC, BMP 02/05/18 07:00 02/05/18 07:00 INR, PTT INR 0.99 (0.82-1.09) 02/05/18 07:00 Problem List - Problems (1) Rectal bleeding Assessment/Plan: resolved s/p colonoscopy and egd Code(s): K62.5 - HEMORRHAGE OF ANUS AND RECTUM (2) Abdominal pain Assessment/Plan: resolved Code(s): R10.9 - UNSPECIFIED ABDOMINAL PAIN (3) Diabetes Assessment/Plan: stable Code(s): E11.9 - TYPE 2 DIABETES MELLITUS WITHOUT COMPLICATIONS Qualifiers: (4) HTN (hypertension) Assessment/Plan: stable , not on any meds Code(s): I10 - ESSENTIAL (PRIMARY) HYPERTENSION Qualifiers: Assessment/Plan dc in am
--- NOTE | 2018-02-07 08:29 | PN ---
Progress Note, Physician Chief Complaint: LGIB and abdominal pain History of Present Illness: 67 yo female PMH HTN, DM, obesity, asthma, DVT CAD on plavix, GERD, presenting to ED with BRBPR yesterday. stable overnight, no more bloody BM. endoscopy showed no active bleeding. - Current Medication List Current Medications: Active Medications Acetaminophen (Ofirmev Injection -) 1,000 mg IVPB Q8H PRN PRN Reason: PAIN 4-6 Last Admin: 02/05/18 23:13 Dose: 1,000 mg Sodium Chloride (Normal Saline -) 1,000 mls @ 75 mls/hr IV ASDIR ROSANNA Last Admin: 02/06/18 20:51 Dose: 75 mls/hr Pantoprazole Sodium (Protonix -) 20 mg PO DAILY [facility] Polyethylene Glycol (Miralax (For Daily Use) -) 17 gm PO DAILY [facility] Quetiapine Fumarate (Seroquel Xr -) 50 mg PO HS [facility] Last Admin: 02/06/18 22:58 Dose: 50 mg Fluticasone/Salmeterol (Advair 100mcg/50mcg -) 1 puff IH BID [facility] Last Admin: 02/06/18 12:10 Dose: 1 puff Sertraline HCl (Zoloft -) 100 mg PO DAILY [facility] Last Admin: 02/06/18 12:09 Dose: 100 mg - Objective Vital Signs: Vital Signs Temperature 99.8 F H 02/07/18 06:05 Pulse Rate 67 02/07/18 06:05 Respiratory Rate 20 02/07/18 06:05 Blood Pressure 108/64 02/07/18 06:05 O2 Sat by Pulse Oximetry (%) 98 02/06/18 20:51 Vital Signs Period Temp Pulse Resp BP Sys/[place] Pulse Ox Last 24 Hr 97.9 F-99.8 F 57-72 16-22 108-150/64-90 98-100 Constitutional: Yes: Well Nourished, No Distress, Calm Eyes: Yes: Conjunctiva Clear, EOM Intact HENT: Yes: Atraumatic, Normocephalic Neck: Yes: Supple, Trachea Midline Cardiovascular: Yes: Regular Rate and Rhythm, S1, S2 Respiratory: Yes: Regular, CTA Bilaterally Gastrointestinal: Yes: Normal Bowel Sounds, Soft. No: Tenderness ...Rectal Exam: Yes: Deferred Genitourinary: No: CVA Tenderness - Left, CVA Tenderness - Right Musculoskeletal: No: Muscle Pain, Muscle Weakness Extremities: No: Cool, Cyanosis Edema: No Peripheral Pulses WNL: Yes Peripheral Pulses: Left Doralis Pedis: 2+, Right Dorsalis Pedis: 2+ Neurological: Yes: Alert, Oriented Psychiatric: Yes: Alert, Oriented Labs: CBC, BMP 02/05/18 07:00 02/05/18 07:00 INR, PTT INR 0.99 (0.82-1.09) 02/05/18 07:00 Problem List - Problems (1) Rectal bleeding Assessment/Plan: 67 yo female MMP with rectal bleeding and vague abdominal pain, will need better localization of the bleeding source in order to address if this patient should be offered surgery. Appreciate GI evaluation. Has not been transfused. Colonoscopy - non bleeding rectal varix, scattered diverticulum sigmoid, EGD - gastritis. Diet as tolerated GI prophylaxsis - consider PPI Discharge planning Surgical followup Code(s): K62.5 - HEMORRHAGE OF ANUS AND RECTUM (2) Asthma Code(s): J45.909 - UNSPECIFIED ASTHMA, UNCOMPLICATED Qualifiers: Asthma severity: mild Asthma persistence: intermittent Asthma complication type: unspecified Qualified Code(s): J45.20 - Mild intermittent asthma, uncomplicated (3) CAD (coronary artery disease) Code(s): I25.10 - ATHSCL HEART DISEASE OF [place] CORONARY ARTERY W/O ANG PCTRS Qualifiers: Coronary Disease-Associated Artery/Lesion type: [place] artery [place] vs. transplanted heart: [place] heart Associated angina: angina presence unspecified Qualified Code(s): I25.10 - Atherosclerotic heart disease of [place] coronary artery without angina pectoris (4) Diabetes Code(s): E11.9 - TYPE 2 DIABETES MELLITUS WITHOUT COMPLICATIONS Qualifiers: (5) Gastritis Code(s): K29.70 - GASTRITIS, UNSPECIFIED, WITHOUT BLEEDING (6) HTN (hypertension) Code(s): I10 - ESSENTIAL (PRIMARY) HYPERTENSION Qualifiers:
[2018-02-07 09:49] VITALS: BP 120/64; PULSE 65; TEMP 98.4
[2018-02-07] MEDS: FLUTICASONE/SALMETEROL 100 MCG/50 MCG DISKUS IH SCH ×2 (09:49→09:54)
[2018-02-07] MEDS ORDERED: PT OWN MED DRAWER 7, Y5N ONE (09:52)
[2018-02-07] MEDS: SERTRALINE HCL 50 MG TABLET (FP) PO SCH (09:54)
[2018-02-07] MEDS ORDERED: PANTOPRAZOLE 20 MG TABLET (FP) PO SCH (10:00)
[2018-02-07] MEDS ORDERED: POLYETHYLENE GLYCOL 3350 119 GM BTL PO SCH (10:00)
--- NOTE | 2018-02-07 15:11 | PATH ---
Surgical Pathology Report Patient Name: KRYSTINA GONZALEZ Med. Rec. #: [id number] /Age/Gender: 1950 (Age: 67) / F Account: [id number] Location: [facility] MED/SURG Taken: 02/06/2018 Received: 02/06/2018 Reported: 02/07/2018 Physicians: Jose Manuel Tsang M.D. Specimen(s) Received BX ANTRUM Clinical History Rectal bleeding Postoperative diagnosis: Gastritis, diverticulosis, internal hemorrhoids Final Diagnosis GASTRIC ANTRUM, BIOPSY: GASTRIC MUCOSA WITH REACTIVE GASTROPATHY. Electronically Signed Misty Benavidez M.D. Gross Description Received in formalin, labeled "antrum" are 3 borden, irregular portions of soft tissue ranging from 0.1-0.3 cm. in greatest dimension. The specimens are submitted in toto in one cassette. /02/07/2018 saudi02/07/2018
--- NOTE | 2018-02-07 18:03 | DS ---
Physical Examination Vital Signs: Vital Signs Temperature 98.4 F 02/07/18 09:48 Pulse Rate 65 02/07/18 09:48 Respiratory Rate 20 02/07/18 09:48 Blood Pressure 120/64 02/07/18 09:48 O2 Sat by Pulse Oximetry (%) 99 02/07/18 09:00 Constitutional: Yes: No Distress HENT: Yes: Atraumatic Neck: Yes: Supple Cardiovascular: Yes: Regular Rate and Rhythm Respiratory: Yes: CTA Bilaterally Gastrointestinal: Yes: Normal Bowel Sounds Extremities: Yes: WNL Neurological: Yes: Alert, Oriented Labs: CBC, BMP 02/05/18 07:00 02/05/18 07:00 Discharge Summary Reason For Visit: RECTAL HEMORRHAGE - Instructions Diet, Activity, Other Instructions: Follow-up: Call Dr. Cullen' office at [phone] to make your follow-up appointment (Saturday 4 weeks after discharge). Clinic is held in the [facility] on the first floor of [facility]. Also, see your primary medical doctor within 1-2 weeks. Referrals: Jah Anne MD [Primary Care Provider] - Disposition: HOME HEALTH CARE - Home Medications Comprehensive Discharge Medication List: Ambulatory Orders Sertraline HCl [Zoloft] 100 mg PO DAILY 03/09/12 Meclizine HCl [Bonine] 25 mg PO DAILY PRN 07/04/14 Valsartan [Diovan] 160 mg PO DAILY 07/04/14 Cholecalciferol (Vitamin D3) [Vitamin D -] 2,000 unit PO DAILY 03/01/15 Clopidogrel Bisulfate [Plavix -] 75 mg PO DAILY 03/01/15 Hydroxyzine Pamoate [Vistaril] 100 mg PO DAILY 03/01/15 Albuterol Sulfate Inhaler - [Ventolin HFA Inhaler -] 1 puff IH DAILY PRN Ascorbic Acid [Vitamin C -] 500 mg PO DAILY 07/28/17 Eletriptan Hydrobromide [Relpax -] 40 mg PO DAILY 07/28/17 Esomeprazole Magnesium 40 mg PO DAILY 07/28/17 Quetiapine Fumarate [Quetiapine Fumarate ER] 50 mg PO HS 07/28/17 metroNIDAZOLE [Flagyl -] 500 mg PO TID #80 tablet 07/30/17 Pantoprazole Sodium [Protonix] 40 mg PO DAILY #30 tablet. 02/06/18 [facility] [facility]
== END 2018-02-07 11:17 | disposition home or self-care (01) | DRG 392 ==
LOC: JER 11:44 → JERBED 18:33 → J8W 22:36
PROVIDERS: ADMIT Internal Medicine; ATTEND Internal Medicine
PROC: 0DJD8ZZ Inspection of Lower Intestinal Tract, Via Natural or Artificial Opening Endoscopic (ICD-10-PCS; 2018-02-06)
PROC: 0DD68ZX Extraction of Stomach, Via Natural or Artificial Opening Endoscopic, Diagnostic (ICD-10-PCS; principal; 2018-02-06 09:30)
DX: K57.30 Diverticulosis of large intestine without perforation or abscess without bleeding (principal); K62.5 Hemorrhage of anus and rectum; K21.9 Gastro-esophageal reflux disease without esophagitis; I25.10 Atherosclerotic heart disease of native coronary artery without angina pectoris; E11.9 Type 2 diabetes mellitus without complications; I10 Essential (primary) hypertension; D64.9 Anemia, unspecified; K29.70 Gastritis, unspecified, without bleeding; F41.9 Anxiety disorder, unspecified; J45.20 Mild intermittent asthma, uncomplicated; G43.909 Migraine, unspecified, not intractable, without status migrainosus; R10.9 Unspecified abdominal pain; E66.8 Other obesity; Z68.27 Body mass index [BMI] 27.0-27.9, adult; T45.7X5A Adverse effect of anticoagulant antagonists, vitamin K and other coagulants, initial encounter; K44.9 Diaphragmatic hernia without obstruction or gangrene; K64.8 Other hemorrhoids; Z87.11 Personal history of peptic ulcer disease
CPT/HCPCS: 36415; 74174-TC; 80053; 81003; 82550; 82962; 83605; 83690; 84484; 85025; 85610; 85730; 86850; 86900; 86901; 87324; 87449; 93005; 93010; 99283-25; J0131; J7030

== ENCOUNTER 2018-10-05 17:41 | Emergency (ER) | payer OTHER ==
[2018-10-05 17:54] VITALS: BP 134/88; PULSE 89; TEMP 98.9; BMI 28.7
--- NOTE | 2018-10-05 18:35 | PDOC ---
History of Present Illness - General Chief Complaint: Respiratory Stated Complaint: COLD SYMPTOMS Time Seen by Provider: 10/05/18 18:09 History Source: Patient, [employer] Used (#[id number]) Exam Limitations: Clinical Condition - History of Present Illness Initial Comments: 10/05/18 18:45 Patient with history of migraines present with complaint of 2 day history of bodyaches, persistent cough, nasal congestion and headaches with nausea. Patient also reported malaise. Patient denies fever,vomiting, diarrhea or abdominal pains. 10/05/18 18:48 Timing/Duration: other (2 days) Past History - Past Medical History Allergies/Adverse Reactions: Allergies Allergy/AdvReac Type Severity Reaction Status Date / Time aspirin Allergy Rash Verified 10/05/18 17:54 Home Medications: Ambulatory Orders Sertraline HCl [Zoloft] 100 mg PO DAILY 03/09/12 Meclizine HCl [Bonine] 25 mg PO DAILY PRN 07/04/14 Valsartan [Diovan] 160 mg PO DAILY 07/04/14 Cholecalciferol (Vitamin D3) [Vitamin D -] 2,000 unit PO DAILY 03/01/15 Clopidogrel Bisulfate [Plavix -] 75 mg PO DAILY 03/01/15 Hydroxyzine Pamoate [Vistaril] 100 mg PO DAILY 03/01/15 Albuterol Sulfate Inhaler - [Ventolin HFA Inhaler -] 1 puff IH DAILY PRN Ascorbic Acid [Vitamin C -] 500 mg PO DAILY 07/28/17 Eletriptan Hydrobromide [Relpax -] 40 mg PO DAILY 07/28/17 Esomeprazole Magnesium 40 mg PO DAILY 07/28/17 Quetiapine Fumarate [Quetiapine Fumarate ER] 50 mg PO HS 07/28/17 metroNIDAZOLE [Flagyl -] 500 mg PO TID #80 tablet 07/30/17 Pantoprazole Sodium [Protonix] 40 mg PO DAILY #30 tablet. 02/06/18 Azithromycin [Zithromax 250mg Tablets -] 250 mg PO UTDICT #6 tab 10/05/18 Butalb/Acetaminophen/Caffeine [Fioricet 50-300-40 mg Capsule] 1 each PO Q4H PRN #20 capsule 10/05/18 Ipratropium [place] 2 spray NS BID PRN #1 spray 10/05/18 Methylprednisolone [Medrol Dose Kyle] 4 mg PO ASDIR #21 tablet 10/05/18 Anemia: Yes Asthma: Yes Cardiac Disorders: Yes (CAD) COPD: No DVT: No Dementia: No GI Disorders: Yes (acid reflux) HTN: Yes Hypercholesterolemia: Yes Psychiatric Problems: Yes (anxiety) - Suicide/Smoking/Psychosocial Hx Smoking Status: No Smoking History: Never smoked Have you smoked in the past 12 months: No Number of Cigarettes Smoked Daily: 0 Hx Alcohol Use: No Drug/Substance Use Hx: No Substance Use Type: None Hx Substance Use Treatment: No Review of Systems - Review of Systems Able to Perform ROS?: Yes Is the patient limited Swedish proficient: No Constitutional: Yes: Malaise, Weakness. No: Chills, Fever HEENTM: Yes: Nose Congestion. No: Eye Pain, Blurred Vision, Tearing, Recent change in vision, Double Vision, Cataracts, Ear Pain, Ocular Prothesis, Ear Discharge, Nose Pain, Tinnitus, Nose Bleeding, Hearing Loss, Throat Pain, Throat Swelling, Mouth Pain, Dental Problems, Difficulty Swallowing, Mouth Swelling, Other Respiratory: Yes: Symptoms reported, See HPI, Cough. No: Orthopnea, Shortness of Breath, SOB with Exertion, SOB at Rest, Stridor, Wheezing, Productive cough, Hemoptysis, Other Cardiac (ROS): No: Symptoms Reported, See HPI, Chest Pain, Edema, Irregular Heart Rate, Lightheadedness, Palpitations, Syncope, Chest Tightness, Other ABD/GI: Yes: Nausea. No: Constipated, Diarrhea, Vomiting Neurological: Yes: Headache (migraine headache). No: Unsteady Gait, Ataxia, Dizziness All Other Systems: Reviewed and Negative *Physical Exam - Vital Signs Last Vital Signs Temp Pulse Resp BP Pulse Ox 98.9 F 89 18 134/88 99 10/05/18 17:52 10/05/18 17:52 10/05/18 17:52 10/05/18 17:52 10/05/18 17:52 - Physical Exam Comments: 10/05/18 18:47 GENERAL: Well developed, well nourished. Awake and alert. No acute distress. HEENT: Normocephalic, atraumatic. PERRLA, EOMI. No conjunctival pallor. Sclera are non-icteric. Moist mucous membranes. Oropharynx is clear. NECK: Supple. Full ROM. CARDIOVASCULAR: Regular rate and rhythm. No murmurs, rubs, or gallops. Distal pulses are 2+ and symmetric. PULMONARY: No evidence of respiratory distress. Lungs clear to auscultation bilaterally. No wheezing, rales or rhonchi. ABDOMINAL: Soft. Non-tender. Non-distended. No rebound or guarding. No organomegaly. Normoactive bowel sounds. MUSCULOSKELETAL Normal range of motion at all joints. EXTREMITIES: No cyanosis. No clubbing. No edema. SKIN: Warm and dry. Normal capillary refill. No rashes. No jaundice. NEUROLOGICAL: Alert, awake, appropriate. Gait is normal without ataxia. PSYCHIATRIC: Cooperative. Good eye contact. Appropriate mood General Appearance: Yes: Nourished, Appropriately Dressed. No: Apparent Distress Moderate Sedation - Procedure Monitoring Vital Signs: Procedure Monitoring Vital Signs Temperature 98.9 F 10/05/18 17:52 Pulse Rate 89 10/05/18 17:52 Respiratory Rate 18 10/05/18 17:52 Blood Pressure 134/88 10/05/18 17:52 O2 Sat by Pulse Oximetry (%) 99 10/05/18 17:52 ED Treatment Course - RADIOLOGY Radiology Studies Ordered: Category Date Time Status CHEST PA & LAT [RAD] Stat Radiology 10/05/18 18:32 Ordered Medical Decision Making - Medical Decision Making 10/05/18 18:49 Patient with history of migraines present with complaint of 2 day history of bodyaches, persistent cough, nasal congestion and headaches with nausea. Patient also reported malaise. Lungs clear to auscultation bilateral on exam. Normal cardiac exam and no more neuro exam. Rapid flu tests ordered. Chest x-ray ordered. Reglan 10 mg IM and fioricet ordered for migraine. Treat based on lab and imaging results. 10/05/18 19:55 Rapid flu negative. Chest x-ray shows no acute infiltrate. Patient symptoms likely URI which could be from bacterial versus viral. Patient is stable for outpatient treatment with PCP follow-up. *DC/Admit/Observation/Transfer Diagnosis at time of Disposition: Malaise and fatigue, Nausea URI (upper respiratory infection) Qualifiers: URI type: unspecified URI Qualified Code(s): J06.9 - Acute upper respiratory infection, unspecified - Discharge Dispostion Disposition: HOME Condition at time of disposition: Stable Decision to Admit order: No - Prescriptions Prescriptions: Azithromycin [Zithromax 250mg Tablets -] 250 mg PO UTDICT #6 tab Butalb/Acetaminophen/Caffeine [Fioricet 50-300-40 mg Capsule] 1 each PO Q4H PRN #20 capsule PRN Reason: headache Ipratropium [place] 2 spray NS BID PRN #1 spray PRN Reason: nasal congestion Methylprednisolone [Medrol Dose Kyle] 4 mg PO ASDIR #21 tablet - Referrals - Patient Instructions Printed Discharge Instructions: DI for Acute Bronchitis Additional Instructions: Your flu test was negative. Your chest x-ray shows no pneumonia. Take medications as prescribed. Follow-up with primary care - Post Discharge Activity
[2018-10-05] MEDS ORDERED: METOCLOPRAMIDE HCL INJECTION 10 MG/2 ML VIAL IM ONE (18:44)
[2018-10-05] MEDS ORDERED: ACETAMINOPHEN/CAFFEINE/BUTALBITAL 1 TAB PO ONE (18:47)
[2018-10-05] MEDS ORDERED: ACETAMINOPHEN/CAFFEINE/BUTALBITAL 1 TAB ONE (18:51)
[2018-10-05] MEDS ORDERED: METOCLOPRAMIDE HCL INJECTION 10 MG/2 ML VIAL ONE (19:36)
== END 2018-10-05 20:08 | disposition home or self-care (01) ==
LOC: JERFT 17:41
PROC: 3E023GC Introduction of Other Therapeutic Substance into Muscle, Percutaneous Approach (ICD-10-PCS; principal; 2018-10-05)
DX: J06.9 Acute upper respiratory infection, unspecified (principal); R53.81 Other malaise; I25.10 Atherosclerotic heart disease of native coronary artery without angina pectoris; I10 Essential (primary) hypertension; D64.9 Anemia, unspecified; J45.909 Unspecified asthma, uncomplicated; E78.00 Pure hypercholesterolemia, unspecified; F41.9 Anxiety disorder, unspecified
CPT/HCPCS: 71046-TC-FY; 87804; 96372; 99281-25

== ENCOUNTER 2019-10-26 14:43 | Emergency (ER) | payer MEDICARE, OTHER ==
[2019-10-26 15:04] VITALS: BP 148/87; PULSE 79; TEMP 98.5; BMI 30.5
--- NOTE | 2019-10-26 15:05 | PDOC ---
Rapid Medical Evaluation Time Seen by Provider: 10/26/19 15:01 Medical Evaluation: Allergies Allergy/AdvReac Type Severity Reaction Status Date / Time aspirin Allergy Rash Verified 10/05/18 17:54 10/26/19 15:01 This patient had brief-in person evaluation in triage cc:right knee pain HPI: Patient reports right knee pain x 2 days with radiation into right hip. Patient denies fall or injury PE:NAD unlabored breathing right knee small amount of knee swelling, no warm, able to flex and extend, orders:xray This patient will proceed to main ed for further evaluation Discharge Disposition - Diagnosis Knee pain - Referrals - Patient Instructions - Post Discharge Activity
--- NOTE | 2019-10-26 17:10 | PDOC ---
History of Present Illness - General Chief Complaint: Pain Stated Complaint: RT LEG PAIN Time Seen by Provider: 10/26/19 15:01 Past History - Past Medical History Allergies/Adverse Reactions: Allergies Allergy/AdvReac Type Severity Reaction Status Date / Time aspirin Allergy Rash Verified 10/26/19 15:04 Home Medications: Ambulatory Orders Sertraline HCl [Zoloft] 100 mg PO DAILY 03/09/12 Meclizine HCl [Bonine] 25 mg PO DAILY PRN 07/04/14 Valsartan [Diovan] 160 mg PO DAILY 07/04/14 Cholecalciferol (Vitamin D3) [Vitamin D -] 2,000 unit PO DAILY 03/01/15 Clopidogrel Bisulfate [Plavix -] 75 mg PO DAILY 03/01/15 Hydroxyzine Pamoate [Vistaril] 100 mg PO DAILY 03/01/15 Albuterol Sulfate Inhaler - [Ventolin HFA Inhaler -] 1 puff IH DAILY PRN 07/28/17 Ascorbic Acid [Vitamin C -] 500 mg PO DAILY 07/28/17 Eletriptan Hydrobromide [Relpax -] 40 mg PO DAILY 07/28/17 Esomeprazole Magnesium 40 mg PO DAILY 07/28/17 Quetiapine Fumarate [Quetiapine Fumarate ER] 50 mg PO HS 07/28/17 metroNIDAZOLE [Flagyl -] 500 mg PO TID #80 tablet 07/30/17 Pantoprazole Sodium [Protonix] 40 mg PO DAILY #30 tablet. 02/06/18 Azithromycin [Zithromax 250mg Tablets -] 250 mg PO UTDICT #6 tab 10/05/18 Butalb/Acetaminophen/Caffeine [Fioricet 50-300-40 mg Capsule] 1 each PO Q4H PRN #20 capsule 10/05/18 Ipratropium [place] 2 spray NS BID PRN #1 spray 10/05/18 Methylprednisolone [Medrol Dose Kyle] 4 mg PO ASDIR #21 tablet 10/05/18 Acetaminophen [Tylenol -] 650 mg PO Q4H #30 tablet 10/26/19 predniSONE [Deltasone -] 40 mg PO DAILY #8 tablet 10/26/19 Anemia: Yes Asthma: Yes Cardiac Disorders: Yes (CAD) COPD: No DVT: No Dementia: No GI Disorders: Yes (acid reflux) HTN: Yes Hypercholesterolemia: Yes Psychiatric Problems: Yes (anxiety) - Psycho Social/Smoking Cessation Hx Smoking Status: No Smoking History: Never smoked Have you smoked in the past 12 months: No Number of Cigarettes Smoked Daily: 0 Information on smoking cessation initiated: No Hx Alcohol Use: No Drug/Substance Use Hx: No Substance Use Type: None Hx Substance Use Treatment: No *Physical Exam - Vital Signs Last Vital Signs Temp Pulse Resp BP Pulse Ox 98.5 F 79 18 148/87 96 10/26/19 15:01 10/26/19 15:10/26/19 15:10/26/19 15:10/26/19 15:01 Discharge - Discharge Information Problems reviewed: Yes Clinical Impression/Diagnosis: Knee pain Qualifiers: Chronicity: acute Laterality: right Qualified Code(s): M25.561 - Pain in right knee Condition: Stable Disposition: HOME - Admission No - Follow up/Referral Referrals: Yonatan Simon MD [Staff Physician] - - Patient Discharge Instructions Patient Printed Discharge Instructions: DI for Osteoarthritis Additional Instructions: You were evaluated for your knee pain today. You have arthritis in your knee. Please take the steroid pack as directed You may also take Tylenol 650 mg every 4 hours as needed for pain. Please purchase a cane to help with walking. Please follow-up with orthopedics this week. A referral has been provided to you. Return to the ER for worsening pain, numbness and tingling to the extremity or if you have any changes in your symptoms. Hoy te evaluaron para el dolor de rodilla. Tienes artritis en la rodilla. Por favor, tome el paquete de esteroides johnna se indica Tambin puede abisai Tylenol 650 mg cada 4 horas segn sea necesario para el dolor. Por favor, compre un bastonparatismo para ayudar a caminar. Por favor, fartun un seguimiento con ortopedia esta semana. Se le saba pro porcionado eugenia referencia. Regrese a urgencias para empeorar el dolor, el entumecimiento y el hormigueo en las extremidades o si tiene algn cambio en los sntomas. Print Language: MONTENEGRIN - Post Discharge Activity
[2019-10-26] MEDS ORDERED: DEXAMETHASONE SOD PHOSPHATE 10 MG/1 ML VIAL IM ONE (17:11)
[2019-10-26] MEDS ORDERED: DEXAMETHASONE SOD PHOSPHATE 10 MG/1 ML VIAL ONE (17:11)
== END 2019-10-26 17:15 | disposition home or self-care (01) ==
LOC: JERFT 14:43
PROC: 3E0233Z Introduction of Anti-inflammatory into Muscle, Percutaneous Approach (ICD-10-PCS; principal; 2019-10-26)
DX: M17.11 Unilateral primary osteoarthritis, right knee (principal); I25.10 Atherosclerotic heart disease of native coronary artery without angina pectoris; I10 Essential (primary) hypertension; D64.9 Anemia, unspecified; K21.9 Gastro-esophageal reflux disease without esophagitis; J45.909 Unspecified asthma, uncomplicated; E78.00 Pure hypercholesterolemia, unspecified; Z88.6 Allergy status to analgesic agent; Z79.02 Long term (current) use of antithrombotics/antiplatelets
CPT/HCPCS: 73560-TC-RT-FY; 96372; 99281-25; J1100

== ENCOUNTER 2022-09-07 05:24 | Emergency (ER) | payer OTHER ==
[2022-09-07 05:45] VITALS: RESP 18; TEMP 99.3; BMI 30.2
[2022-09-07] MEDS ORDERED: LACTATED RINGERS SOLUTION 1000 ML INFUS.BAG IV ONE (07:32)
[2022-09-07] MEDS ORDERED: METOCLOPRAMIDE HCL INJECTION 10 MG/2 ML VIAL IVPUSH ONE (07:32)
[2022-09-07] MEDS ORDERED: METOCLOPRAMIDE HCL INJECTION 10 MG/2 ML VIAL ONE (07:43)
[2022-09-07 09:11] LABS: BASO % 0.4 % (0-2.0); HEMATOCRIT 39.9 % (32.4-45.2); HEMOGLOBIN 13.2 GM/dL (10.7-15.3); LYMPH % 15.3 % (8-40); MCHC 33.2 g/dl (32.0-36.0); MEAN CELL VOLUME 90.4 fl (80-96); MEAN PLT VOLUME 12.2 fl (7.5-11.1); MONO % 18.1 % (3.8-10.2); NEUT % 66.2 % (42.8-82.8); PLATELET COUNT 119 10^3/uL (134-434); RBC 4.41 M/mm3 (3.60-5.2); RDW 15.2 % (11.6-15.6); WHITE BLOOD COUNT 6.9 K/mm3 (4.0-10.0)
[2022-09-07 09:17] LABS: INR 1.11 (0.83-1.09); PROTHROMBIN TIME (PATIENT) 12.8 SEC (9.7-13.0)
[2022-09-07 09:19] LABS: ACTIVATED PTT 23.7 SECONDS (25.2-36.5)
[2022-09-07 10:00] LABS: CALCIUM 9.2 mg/dL (8.5-10.1)
[2022-09-07 10:01] LABS: ALBUMIN 3.7 g/dl (3.4-5.0); BLOOD UREA NITROGEN 18.3 mg/dL (7-18); MAGNESIUM 2.2 mg/dL (1.8-2.4)
[2022-09-07 10:05] LABS: BILIRUBIN,TOTAL 0.6 mg/dL (0.2-1)
[2022-09-07 12:15] VITALS: BP 123/72; PULSE 74
[2022-09-07] MEDS ORDERED: ACETAMINOPHEN 1000 MG/100 ML BAG IVPB ONE (12:29)
[2022-09-07] MEDS ORDERED: ACETAMINOPHEN INJECTION 100 ML IVPB ONE (12:39)
== END 2022-09-07 14:44 | disposition home or self-care (01) ==
LOC: JER 05:24
PROC: 3E0333Z Introduction of Anti-inflammatory into Peripheral Vein, Percutaneous Approach (ICD-10-PCS; principal; 2022-09-07)
PROC: 3E033GC Introduction of Other Therapeutic Substance into Peripheral Vein, Percutaneous Approach (ICD-10-PCS; 2022-09-07)
DX: U07.1 COVID-19 (principal)
CPT/HCPCS: 0241U-QW; 36415; 71045-TC-FY; 71275-TC; 80053; 83735; 84484; 85025; 85379; 85610; 85730; 93005; 93010; 99285-25; Q9967

== ENCOUNTER 2023-07-09 05:04 | Inpatient (IN) | payer OTHER ==
[2023-07-09] MEDS ORDERED: ONDANSETRON 4 MG/2 ML VIAL IVPUSH ONE (05:46)
[2023-07-09] MEDS ORDERED: ACETAMINOPHEN 1000 MG/100 ML BAG IVPB ONE (05:47)
[2023-07-09] MEDS ORDERED: ONDANSETRON 4 MG/2 ML VIAL ONE (05:59)
[2023-07-09] MEDS ORDERED: ACETAMINOPHEN INJECTION 100 ML IVPB ONE (05:59)
[2023-07-09 06:46] LABS: BASO % 0.2 % (0-2.0); EOS % 0.1 % (0-4.5); HEMATOCRIT 37.1 % (32.4-45.2); HEMOGLOBIN 11.8 GM/dL (10.7-15.3); LYMPH % 12.4 % (8-40); MCH 28.5 pg (25.7-33.7); MCHC 31.9 g/dl (32.0-36.0); MEAN CELL VOLUME 89.4 fl (80-96); MEAN PLT VOLUME 11.4 fl (7.5-11.1); MONO % 6.1 % (3.8-10.2); NEUT % 81.2 % (42.8-82.8); PLATELET COUNT 158 10^3/uL (134-434); RBC 4.15 M/mm3 (3.60-5.2); RDW 15.1 % (11.6-15.6); WHITE BLOOD COUNT 9.4 K/mm3 (4.0-10.0)
[2023-07-09] MEDS ORDERED: morphine CARPU-JECT 2 MG/1 ML DISP.SYRIN IM ONE (06:48)
[2023-07-09 06:49] LABS: EPI CELLS 12 /uL (0-25.1); HYALINE CASTS 0 /uL (0-3.1); URINE APPEARANCE CLEAR; URINE BACTERIA 302 /uL (0-1359); URINE BILIRUBIN NEGATIVE (NEGATIVE); URINE COLOR DK YELLOW; URINE GLUCOSE (UA) NEGATIVE (NEGATIVE); URINE KETONE TRACE (NEGATIVE); URINE LEUK ESTERASE TRACE (NEGATIVE); URINE NITRITE NEGATIVE (NEGATIVE); URINE PROTEIN TRACE (NEGATIVE); URINE RBC 14 /uL (0-23.9); URINE WBC 8 /uL (0-25.8)
[2023-07-09] MEDS ORDERED: SODIUM CHLORIDE 0.9% 500 ML INFUS.BAG IV ONE (06:49)
[2023-07-09 06:55] LABS: POTASSIUM 3.3 mmol/L (3.5-5.1)
[2023-07-09 06:56] LABS: INR 0.97 (0.83-1.09); PROTHROMBIN TIME (PATIENT) 11.3 SEC (9.7-13.0)
[2023-07-09 06:57] LABS: ALBUMIN 3.9 g/dl (3.4-5.0); BLOOD UREA NITROGEN 21.2 mg/dL (7-18); CALCIUM 8.8 mg/dL (8.5-10.1); MAGNESIUM 1.9 mg/dL (1.8-2.4)
[2023-07-09 06:59] LABS: ACTIVATED PTT 26.3 SECONDS (25.2-36.5)
[2023-07-09 07:02] LABS: BILIRUBIN,TOTAL 0.5 mg/dL (0.2-1); TOT PROT 7.9 g/dl (6.4-8.2)
[2023-07-09] MEDS ORDERED: TRIMETHOBENZAMIDE HCL 200MG/2ML INJ IM PRN (16:45)
[2023-07-09] MEDS ORDERED: CEFTRIAXONE 1 GM/50 ML BAG ONE (18:28)
[2023-07-09] MEDS: CEFTRIAXONE 1 GM in DEXTROSE 5%-WATER - 50 ML IVPB SCH (18:40)
[2023-07-09] MEDS: LACTATED RINGERS SOLUTION 1,000 ML/1,000 ML INFUS.BAG IV SCH (22:35)
[2023-07-09] MEDS: INSULIN SLIDING SCALE (NOVOLOG) 1 VIAL SQ SCH (22:45)
[2023-07-10] MEDS: INSULIN SLIDING SCALE (NOVOLOG) 1 VIAL SQ SCH ×4 (06:12→22:01)
[2023-07-10 10:00] LABS: BASO % 0.2 % (0-2.0); HEMATOCRIT 33.2 % (32.4-45.2); LYMPH % 22.2 % (8-40); MCH 29.4 pg (25.7-33.7); MCHC 33.3 g/dl (32.0-36.0); MEAN CELL VOLUME 88.4 fl (80-96); MEAN PLT VOLUME 11.2 fl (7.5-11.1); MONO % 9.4 % (3.8-10.2); NEUT % 67.2 % (42.8-82.8); PLATELET COUNT 143 10^3/uL (134-434); RBC 3.75 M/mm3 (3.60-5.2); RDW 14.9 % (11.6-15.6); WHITE BLOOD COUNT 9.4 K/mm3 (4.0-10.0)
[2023-07-10] MEDS ORDERED: PATIENT'S OWN MEDICATION (NON-FORMULARY) (Atenolol/Chlorthalidone [Atenolol-Chlorthalidone PO SCH (10:00)
[2023-07-10] MEDS ORDERED: CHLORTHALIDONE 25 MG TABLET PO SCH (10:00)
[2023-07-10] MEDS: CEFTRIAXONE 1 GM in DEXTROSE 5%-WATER - 50 ML IVPB SCH (10:07)
[2023-07-10] MEDS: ATENOLOL 50 MG TABLET (FP) PO SCH (10:10)
[2023-07-10] MEDS: SERTRALINE HCL 50 MG TABLET (FP) PO SCH (10:10)
[2023-07-10 10:11] LABS: POTASSIUM 3.1 mmol/L (3.5-5.1)
[2023-07-10 10:16] LABS: MAGNESIUM 1.8 mg/dL (1.8-2.4)
[2023-07-10 10:19] LABS: CREATININE 0.9 mg/dL (0.55-1.3)
[2023-07-10 10:26] LABS: ALBUMIN 3.4 g/dl (3.4-5.0); BILIRUBIN,TOTAL 1.1 mg/dL (0.2-1); BLOOD UREA NITROGEN 11.5 mg/dL (7-18); CALCIUM 8.7 mg/dL (8.5-10.1); PHOSPHOROUS 3.2 mg/dL (2.5-4.9)
[2023-07-10] MEDS ORDERED: POTASSIUM CHLORIDE TABS 20 MEQ TABLET.ER (FP) PO ONE (19:30)
[2023-07-10] MEDS: ATORVASTATIN CA 10 MG TABLET (FP) PO SCH (22:00)
[2023-07-11] MEDS: LACTATED RINGERS SOLUTION 1,000 ML/1,000 ML INFUS.BAG IV SCH ×2 (02:37→13:41)
[2023-07-11] MEDS: INSULIN SLIDING SCALE (NOVOLOG) 1 VIAL SQ SCH ×4 (07:55→21:49)
[2023-07-11] MEDS ORDERED: ALBUTEROL SO4 HFA INHALER IH PRN (07:57)
[2023-07-11 09:02] LABS: BASO % 0.4 % (0-2.0); EOS % 0.9 % (0-4.5); HEMATOCRIT 31.6 % (32.4-45.2); HEMOGLOBIN 10.8 GM/dL (10.7-15.3); LYMPH % 23.6 % (8-40); MCH 29.9 pg (25.7-33.7); MCHC 34.1 g/dl (32.0-36.0); MEAN CELL VOLUME 87.5 fl (80-96); MEAN PLT VOLUME 11.3 fl (7.5-11.1); MONO % 8.5 % (3.8-10.2); NEUT % 66.6 % (42.8-82.8); PLATELET COUNT 141 10^3/uL (134-434); RBC 3.61 M/mm3 (3.60-5.2); RDW 14.8 % (11.6-15.6); WHITE BLOOD COUNT 10.7 K/mm3 (4.0-10.0)
[2023-07-11 09:18] LABS: POTASSIUM 3.5 mmol/L (3.5-5.1)
[2023-07-11 09:20] LABS: CALCIUM 8.4 mg/dL (8.5-10.1)
[2023-07-11 09:21] LABS: MAGNESIUM 1.8 mg/dL (1.8-2.4)
[2023-07-11 09:24] LABS: CREATININE 0.8 mg/dL (0.55-1.3)
[2023-07-11 09:25] LABS: TOT PROT 6.3 g/dl (6.4-8.2)
[2023-07-11] MEDS: CEFTRIAXONE 1 GM in DEXTROSE 5%-WATER - 50 ML IVPB SCH (09:36)
[2023-07-11] MEDS: SERTRALINE HCL 50 MG TABLET (FP) PO SCH (09:37)
[2023-07-11] MEDS: PANTOPRAZOLE 40 MG TABLET PO SCH (09:38)
[2023-07-11] MEDS: ATENOLOL 50 MG TABLET (FP) PO SCH (09:38)
[2023-07-11 10:27] LABS: ERYTHROCYTE SEDIMENTATION RATE 55 mm/hr (0-30)
[2023-07-11] MEDS: PIPERACILLIN/TAZOB 3.375 GM 3.375 GM in DEXTROSE 5%-WATER - 50 ML IVPB SCH (17:11)
[2023-07-11] MEDS: ATORVASTATIN CA 10 MG TABLET (FP) PO SCH (21:49)
[2023-07-12] MEDS: PIPERACILLIN/TAZOB 3.375 GM 3.375 GM in DEXTROSE 5%-WATER - 50 ML IVPB SCH ×3 (01:44→17:52)
[2023-07-12] MEDS: LACTATED RINGERS SOLUTION 1,000 ML/1,000 ML INFUS.BAG IV SCH ×2 (01:44)
[2023-07-12] MEDS: INSULIN SLIDING SCALE (NOVOLOG) 1 VIAL SQ SCH ×4 (06:49→21:57)
[2023-07-12] MEDS: SERTRALINE HCL 50 MG TABLET (FP) PO SCH (09:39)
[2023-07-12] MEDS: ATENOLOL 50 MG TABLET (FP) PO SCH (09:39)
[2023-07-12] MEDS: PANTOPRAZOLE 40 MG TABLET PO SCH (09:39)
[2023-07-12 10:55] LABS: BASO % 0.4 % (0-2.0); EOS % 1.4 % (0-4.5); HEMATOCRIT 34.9 % (32.4-45.2); HEMOGLOBIN 11.4 GM/dL (10.7-15.3); INR 1.22 (0.83-1.09); LYMPH % 33.5 % (8-40); MCHC 32.6 g/dl (32.0-36.0); MEAN CELL VOLUME 88.9 fl (80-96); MEAN PLT VOLUME 11.8 fl (7.5-11.1); MONO % 7.9 % (3.8-10.2); NEUT % 56.8 % (42.8-82.8); PLATELET COUNT 152 10^3/uL (134-434); PROTHROMBIN TIME (PATIENT) 14.1 SEC (9.7-13.0); RBC 3.93 M/mm3 (3.60-5.2); RDW 14.9 % (11.6-15.6); WHITE BLOOD COUNT 7.3 K/mm3 (4.0-10.0)
[2023-07-12 11:18] LABS: POTASSIUM 3.3 mmol/L (3.5-5.1)
[2023-07-12 11:20] LABS: ALBUMIN 3.2 g/dl (3.4-5.0); CALCIUM 8.8 mg/dL (8.5-10.1)
[2023-07-12 11:21] LABS: MAGNESIUM 1.9 mg/dL (1.8-2.4)
[2023-07-12 11:23] LABS: CREATININE 0.8 mg/dL (0.55-1.3)
[2023-07-12 11:25] LABS: BILIRUBIN,TOTAL 0.9 mg/dL (0.2-1); TOT PROT 6.6 g/dl (6.4-8.2)
[2023-07-12 11:39] LABS: ERYTHROCYTE SEDIMENTATION RATE 49 mm/hr (0-30)
[2023-07-12] MEDS ORDERED: POTASSIUM CHLORIDE ORAL LIQUID 20 MEQ/15 ML PO ONE (12:00)
[2023-07-12] MEDS: ATORVASTATIN CA 10 MG TABLET (FP) PO SCH (21:52)
[2023-07-13] MEDS: LACTATED RINGERS SOLUTION 1,000 ML/1,000 ML INFUS.BAG IV SCH ×3 (00:14→22:11)
[2023-07-13] MEDS: PIPERACILLIN/TAZOB 3.375 GM 3.375 GM in DEXTROSE 5%-WATER - 50 ML IVPB SCH ×3 (01:30→17:56)
[2023-07-13] MEDS: INSULIN SLIDING SCALE (NOVOLOG) 1 VIAL SQ SCH ×4 (07:47→22:12)
[2023-07-13 09:38] LABS: BASO % 0.9 % (0-2.0); EOS % 2.9 % (0-4.5); HEMATOCRIT 32.6 % (32.4-45.2); HEMOGLOBIN 10.8 GM/dL (10.7-15.3); MCH 29.6 pg (25.7-33.7); MCHC 33.2 g/dl (32.0-36.0); MEAN CELL VOLUME 89.1 fl (80-96); MEAN PLT VOLUME 11.4 fl (7.5-11.1); MONO % 11.5 % (3.8-10.2); NEUT % 39.7 % (42.8-82.8); PLATELET COUNT 135 10^3/uL (134-434); RBC 3.65 M/mm3 (3.60-5.2); RDW 14.9 % (11.6-15.6); WHITE BLOOD COUNT 4.6 K/mm3 (4.0-10.0)
[2023-07-13 09:51] LABS: POTASSIUM 3.4 mmol/L (3.5-5.1)
[2023-07-13 09:54] LABS: CALCIUM 9.1 mg/dL (8.5-10.1)
[2023-07-13 09:55] LABS: MAGNESIUM 1.5 mg/dL (1.8-2.4)
[2023-07-13 09:56] LABS: BLOOD UREA NITROGEN 6.2 mg/dL (7-18)
[2023-07-13 09:57] LABS: ALBUMIN 3.1 g/dl (3.4-5.0)
[2023-07-13 09:58] LABS: CREATININE 0.9 mg/dL (0.55-1.3)
[2023-07-13 09:59] LABS: BILIRUBIN,TOTAL 0.8 mg/dL (0.2-1); TOT PROT 6.5 g/dl (6.4-8.2)
[2023-07-13 10:20] LABS: N-TERMINAL BNP 924.6 pg/ml (5-125)
[2023-07-13] MEDS: PANTOPRAZOLE 40 MG TABLET PO SCH (10:56)
[2023-07-13] MEDS: SERTRALINE HCL 50 MG TABLET (FP) PO SCH (10:56)
[2023-07-13] MEDS: POTASSIUM CHLORIDE TABS 20 MEQ TABLET.ER (FP) PO SCH (10:57)
[2023-07-13] MEDS: ATORVASTATIN CA 10 MG TABLET (FP) PO SCH (22:09)
[2023-07-14] MEDS: PIPERACILLIN/TAZOB 3.375 GM 3.375 GM in DEXTROSE 5%-WATER - 50 ML IVPB SCH ×3 (03:05→18:29)
[2023-07-14] MEDS: INSULIN SLIDING SCALE (NOVOLOG) 1 VIAL SQ SCH ×4 (06:51→21:41)
[2023-07-14 09:00] LABS: BASO % 0.8 % (0-2.0); EOS % 3.1 % (0-4.5); HEMATOCRIT 32.6 % (32.4-45.2); HEMOGLOBIN 11.2 GM/dL (10.7-15.3); LYMPH % 54.5 % (8-40); MCH 30.1 pg (25.7-33.7); MCHC 34.5 g/dl (32.0-36.0); MEAN CELL VOLUME 87.3 fl (80-96); MEAN PLT VOLUME 11.3 fl (7.5-11.1); NEUT % 31.6 % (42.8-82.8); PLATELET COUNT 138 10^3/uL (134-434); RBC 3.73 M/mm3 (3.60-5.2); RDW 14.9 % (11.6-15.6)
[2023-07-14 09:07] LABS: WHITE BLOOD COUNT 4.2 K/mm3 (4.0-10.0)
[2023-07-14 09:13] LABS: POTASSIUM 3.6 mmol/L (3.5-5.1)
[2023-07-14 09:17] LABS: ALBUMIN 3.2 g/dl (3.4-5.0); CALCIUM 8.5 mg/dL (8.5-10.1); MAGNESIUM 1.5 mg/dL (1.8-2.4)
[2023-07-14 09:18] LABS: BLOOD UREA NITROGEN 4.6 mg/dL (7-18)
[2023-07-14 09:21] LABS: CREATININE 0.9 mg/dL (0.55-1.3)
[2023-07-14 09:22] LABS: BILIRUBIN,TOTAL 0.9 mg/dL (0.2-1); TOT PROT 6.5 g/dl (6.4-8.2)
[2023-07-14] MEDS: SERTRALINE HCL 50 MG TABLET (FP) PO SCH (09:29)
[2023-07-14] MEDS: PANTOPRAZOLE 40 MG TABLET PO SCH (09:29)
[2023-07-14] MEDS: POTASSIUM CHLORIDE TABS 20 MEQ TABLET.ER (FP) PO SCH (09:30)
[2023-07-14] MEDS ORDERED: PIPERACILLIN/TAZOBACTAM 3.375 GM VIAL IVPB ONE (17:18)
[2023-07-14] MEDS: ACETAMINOPHEN 325 MG TABLET (FP) PO PRN (20:18)
[2023-07-14] MEDS: ATORVASTATIN CA 10 MG TABLET (FP) PO SCH (21:39)
[2023-07-14] MEDS: LACTATED RINGERS SOLUTION 1,000 ML/1,000 ML INFUS.BAG IV SCH (21:40)
[2023-07-15] MEDS: PIPERACILLIN/TAZOB 3.375 GM 3.375 GM in DEXTROSE 5%-WATER - 50 ML IVPB SCH ×3 (01:52→17:20)
[2023-07-15] MEDS: LACTATED RINGERS SOLUTION 1,000 ML/1,000 ML INFUS.BAG IV SCH ×2 (02:04→17:21)
[2023-07-15] MEDS: INSULIN SLIDING SCALE (NOVOLOG) 1 VIAL SQ SCH ×4 (07:07→22:02)
[2023-07-15] MEDS: SERTRALINE HCL 50 MG TABLET (FP) PO SCH (10:18)
[2023-07-15] MEDS: PANTOPRAZOLE 40 MG TABLET PO SCH (10:18)
[2023-07-15] MEDS ORDERED: INSULIN (NOVOLOG) ASPART 100 UNITS/ML 10ML VIAL ONE ×2 (11:24→21:41)
[2023-07-15 13:22] LABS: BASO % 0.5 % (0-2.0); EOS % 2.2 % (0-4.5); HEMATOCRIT 31.7 % (32.4-45.2); HEMOGLOBIN 10.8 GM/dL (10.7-15.3); LYMPH % 41.7 % (8-40); MCH 30.1 pg (25.7-33.7); MCHC 34.1 g/dl (32.0-36.0); MEAN CELL VOLUME 88.1 fl (80-96); MEAN PLT VOLUME 11.5 fl (7.5-11.1); MONO % 9.5 % (3.8-10.2); NEUT % 46.1 % (42.8-82.8); PLATELET COUNT 121 10^3/uL (134-434); RDW 15.1 % (11.6-15.6); WHITE BLOOD COUNT 3.8 K/mm3 (4.0-10.0)
[2023-07-15 13:28] LABS: INR 1.09 (0.83-1.09); PROTHROMBIN TIME (PATIENT) 12.6 SEC (9.7-13.0)
[2023-07-15 13:40] LABS: POTASSIUM 3.9 mmol/L (3.5-5.1)
[2023-07-15 13:43] LABS: ALBUMIN 2.9 g/dl (3.4-5.0); MAGNESIUM 1.5 mg/dL (1.8-2.4)
[2023-07-15 13:46] LABS: CREATININE 0.8 mg/dL (0.55-1.3)
[2023-07-15 13:47] LABS: TOT PROT 6.2 g/dl (6.4-8.2)
[2023-07-15 13:48] LABS: BILIRUBIN,TOTAL 0.5 mg/dL (0.2-1)
[2023-07-15] MEDS: ACETAMINOPHEN 325 MG TABLET (FP) PO PRN (16:47)
[2023-07-15] MEDS: ATORVASTATIN CA 10 MG TABLET (FP) PO SCH (22:02)
[2023-07-16] MEDS: PIPERACILLIN/TAZOB 3.375 GM 3.375 GM in DEXTROSE 5%-WATER - 50 ML IVPB SCH ×3 (01:50→17:03)
[2023-07-16] MEDS: ACETAMINOPHEN 325 MG TABLET (FP) PO PRN (01:53)
[2023-07-16] MEDS: INSULIN SLIDING SCALE (NOVOLOG) 1 VIAL SQ SCH ×4 (06:03→22:24)
[2023-07-16] MEDS: LACTATED RINGERS SOLUTION 1,000 ML/1,000 ML INFUS.BAG IV SCH ×2 (11:36→22:22)
[2023-07-16] MEDS: PANTOPRAZOLE 40 MG TABLET PO SCH ×2 (11:37→12:44)
[2023-07-16 12:22] VITALS: BMI 22.4
[2023-07-16] MEDS: SERTRALINE HCL 50 MG TABLET (FP) PO SCH (12:44)
[2023-07-16] MEDS ORDERED: AMOX TR/POT CLAV 500MG/125MG TABLETS (FP) PO ONE (18:25)
[2023-07-16] MEDS ORDERED: INSULIN (NOVOLOG) ASPART 100 UNITS/ML 10ML VIAL ONE (21:41)
[2023-07-16] MEDS: ATORVASTATIN CA 10 MG TABLET (FP) PO SCH (22:21)
[2023-07-17] MEDS ORDERED: INSULIN (NOVOLOG) ASPART 100 UNITS/ML 10ML VIAL ONE (05:36)
[2023-07-17] MEDS: INSULIN SLIDING SCALE (NOVOLOG) 1 VIAL SQ SCH ×2 (06:24→11:58)
[2023-07-17] MEDS ORDERED: AMOX TR/POT CLAV 500MG/125MG TABLETS (FP) PO SCH (08:00)
[2023-07-17 09:41] LABS: BASO % 0.4 % (0-2.0); EOS % 2.1 % (0-4.5); HEMATOCRIT 38.3 % (32.4-45.2); HEMOGLOBIN 12.2 GM/dL (10.7-15.3); LYMPH % 47.9 % (8-40); MCHC 31.8 g/dl (32.0-36.0); MEAN CELL VOLUME 91.3 fl (80-96); MEAN PLT VOLUME 11.9 fl (7.5-11.1); MONO % 9.4 % (3.8-10.2); NEUT % 40.2 % (42.8-82.8); PLATELET COUNT 160 10^3/uL (134-434); RDW 15.4 % (11.6-15.6); WHITE BLOOD COUNT 5.5 K/mm3 (4.0-10.0)
[2023-07-17] MEDS: PANTOPRAZOLE 40 MG TABLET PO SCH (09:58)
[2023-07-17] MEDS: SERTRALINE HCL 50 MG TABLET (FP) PO SCH (09:58)
[2023-07-17] MEDS ORDERED: MULTIVITAMINS THER W-MINERALS COMBO TABLET (FP) PO SCH (10:00)
[2023-07-17 10:03] LABS: POTASSIUM 4.3 mmol/L (3.5-5.1)
[2023-07-17 10:11] LABS: CALCIUM 9.1 mg/dL (8.5-10.1)
[2023-07-17 10:12] LABS: BLOOD UREA NITROGEN 8.1 mg/dL (7-18)
[2023-07-17 10:15] LABS: CREATININE 0.7 mg/dL (0.55-1.3)
[2023-07-17 10:17] LABS: BILIRUBIN,TOTAL 0.6 mg/dL (0.2-1); TOT PROT 7.7 g/dl (6.4-8.2)
[2023-07-17 10:21] LABS: ALBUMIN 3.7 g/dl (3.4-5.0)
[2023-07-17 11:07] VITALS: BP 125/69; PULSE 81; RESP 20; TEMP 98.2
== END 2023-07-17 13:43 | disposition home or self-care (01) | DRG 394 ==
LOC: JER 05:04 → JERBED 16:30 → J8W 20:51 → OBSVTOIN 07-11 14:18 → J8W 07-13 15:04
PROVIDERS: ADMIT Internal Medicine; ATTEND Nurse Practitioner Family
PROC: 0DBN8ZX Excision of Sigmoid Colon, Via Natural or Artificial Opening Endoscopic, Diagnostic (ICD-10-PCS; 2023-07-16)
PROC: 0DBP8ZX Excision of Rectum, Via Natural or Artificial Opening Endoscopic, Diagnostic (ICD-10-PCS; principal; 2023-07-16 11:00)
DX: K55.9 Vascular disorder of intestine, unspecified (principal); K92.1 Melena; E11.9 Type 2 diabetes mellitus without complications; G43.909 Migraine, unspecified, not intractable, without status migrainosus; E78.5 Hyperlipidemia, unspecified; J45.909 Unspecified asthma, uncomplicated; D64.9 Anemia, unspecified; I25.10 Atherosclerotic heart disease of native coronary artery without angina pectoris; F41.9 Anxiety disorder, unspecified; K52.9 Noninfective gastroenteritis and colitis, unspecified; N93.9 Abnormal uterine and vaginal bleeding, unspecified; F32.A Depression, unspecified; F39 Unspecified mood [affective] disorder; E11.51 Type 2 diabetes mellitus with diabetic peripheral angiopathy without gangrene; K62.1 Rectal polyp; K64.8 Other hemorrhoids; K57.90 Diverticulosis of intestine, part unspecified, without perforation or abscess without bleeding
CPT/HCPCS: 0241U-QW; 36415; 74176-TC; 74177-TC; 76830-TC; 80053; 80061; 81003; 82272; 82438; 82962; 83036; 83605; 83690; 83735; 83880; 84100; 84302; 84439; 84443; 84484; 84999; 85025; 85610; 85651; 85730; 86140; 86304; 86850; 86900; 86901; 87045; 87046; 87086; 87205; 87209; 87324; 87449; 88305-TC; 93005; 93010; 93306-TC; 97116-GP; 97161-GP; 99285-25; G0378; Q9967

== ENCOUNTER 2024-04-09 04:12 | Day surgery (SDC) | payer OTHER ==
[2024-04-06 16:31] VITALS: BMI 22.4
[2024-04-09] MEDS ORDERED: DEXAMETHASONE SOD PHOSPHATE 10 MG/1 ML VIAL ONE (07:38)
[2024-04-09] MEDS ORDERED: LIDOCAINE HCL/PF 1% SDV 5ML VIAL ONE (07:48)
[2024-04-09] MEDS: LIDOCAINE HCL 1% PRESERVATIVE FREE - 30ML VIAL IJ ONE (12:28)
[2024-04-09] MEDS: IOHEXOL 180 MG/1 ML ML IJ ONE (12:28)
[2024-04-09] MEDS: DEXAMETHASONE SOD PHOSPHATE 10 MG/1 ML VIAL IM ONE (12:29)
[2024-04-09 12:56] VITALS: BP 138/76; PULSE 59; RESP 18; TEMP 97.3
[2024-04-09] MEDS ORDERED: ACETAMINOPHEN 500 MG TABLET (FP) PO PRN (15:42)
== END 2024-04-09 13:05 | disposition home or self-care (01) ==
LOC: JASU-SURG 04:12
PROVIDERS: ATTEND Pain Medicine Pain Medicine
PROC: 3E0R3BZ Introduction of Anesthetic Agent into Spinal Canal, Percutaneous Approach (ICD-10-PCS; 2024-04-09)
PROC: 3E0R33Z Introduction of Anti-inflammatory into Spinal Canal, Percutaneous Approach (ICD-10-PCS; principal; 2024-04-09 12:00)
DX: M54.12 Radiculopathy, cervical region (principal)
CPT/HCPCS: 76000-TC-FY; J1100

== ENCOUNTER 2024-05-15 04:02 | Day surgery (SDC) | payer OTHER ==
[2024-05-13 17:36] VITALS: BMI 22.2
[2024-05-15] MEDS ORDERED: LIDOCAINE HCL/PF 1% SDV 5ML VIAL ONE (07:24)
[2024-05-15] MEDS ORDERED: BUPIVACAINE HCL/PF 0.5% (5MG/ML) 10 ML VIAL ONE (07:24)
[2024-05-15] MEDS: BUPIVACAINE HCL/PF 0.5% (5 MG/ML) 30 ML VIAL IJ ONE ×2 (10:35)
[2024-05-15] MEDS: LIDOCAINE HCL 1% PRESERVATIVE FREE - 30ML VIAL IJ ONE ×2 (10:37)
[2024-05-15] MEDS: IOHEXOL 180 MG/1 ML ML IJ ONE ×2 (10:38)
[2024-05-15 11:10] VITALS: BP 128/74; PULSE 57; RESP 16; TEMP 97.7
[2024-05-15] MEDS ORDERED: ACETAMINOPHEN 500 MG TABLET (FP) PO PRN (15:55)
== END 2024-05-15 11:35 | disposition home or self-care (01) ==
LOC: JASU-SURG 04:02
PROVIDERS: ATTEND Pain Medicine Pain Medicine
PROC: 3E0T3BZ Introduction of Anesthetic Agent into Peripheral Nerves and Plexi, Percutaneous Approach (ICD-10-PCS; principal; 2024-05-15 10:00)
DX: M47.812 Spondylosis without myelopathy or radiculopathy, cervical region (principal)
CPT/HCPCS: 76000-TC-FY

== ENCOUNTER 2024-10-16 07:11 | Emergency (ER) | payer OTHER ==
[2024-10-16 07:21] VITALS: BP 146/88; PULSE 85; RESP 18; TEMP 99.1; BMI 24.2
[2024-10-16] MEDS ORDERED: ACETAMINOPHEN INJECTION 100 ML ONE (07:58)
[2024-10-16] MEDS ORDERED: FAMOTIDINE 20 MG/50 ML IVPB 20 MG/50 ML MG IVPB ONE (07:58)
[2024-10-16] MEDS: FAMOTIDINE 20 MG/50 ML IVPB 20 MG/50 ML MG IVPB ONE (08:00)
[2024-10-16] MEDS: ACETAMINOPHEN 1000 MG/100 ML BAG IVPB ONE (08:00)
[2024-10-16 08:49] LABS: BASO % 0.5 % (0-2.0); EOS % 0.4 % (0-4.5); HEMATOCRIT 38.3 % (32.4-45.2); HEMOGLOBIN 12.3 GM/dL (10.7-15.3); LYMPH % 27.5 % (8-40); MCH 29.1 pg (25.7-33.7); MEAN CELL VOLUME 90.9 fl (80-96); MEAN PLT VOLUME 11.7 fl (7.5-11.1); MONO % 9.8 % (3.8-10.2); NEUT % 61.8 % (42.8-82.8); PLATELET COUNT 101 10^3/uL (134-434); RBC 4.22 M/mm3 (3.60-5.2); RDW 14.7 % (11.6-15.6); WHITE BLOOD COUNT 8.5 K/mm3 (4.0-10.0)
[2024-10-16 08:59] LABS: POTASSIUM 4.4 mmol/L (3.5-5.1)
[2024-10-16 09:01] LABS: CALCIUM 9.2 mg/dL (8.5-10.1)
[2024-10-16 09:03] LABS: ALBUMIN 3.4 g/dl (3.4-5.0)
[2024-10-16 09:05] LABS: CREATININE 0.9 mg/dL (0.55-1.3)
[2024-10-16 09:07] LABS: BILIRUBIN,TOTAL 1.7 mg/dL (0.2-1); TOT PROT 7.2 g/dl (6.4-8.2)
[2024-10-16 09:37] LABS: ACTIVATED PTT 26.2 SECONDS (25.2-36.5); INR 1.04 (0.83-1.09)
[2024-10-16 13:28] LABS: HIV INTERPRETATION NEGATIVE (NEGATIVE)
[2024-10-16 14:18] LABS: BASO % 0.6 % (0-2.0); EOS % 0.5 % (0-4.5); HEMATOCRIT 35.3 % (32.4-45.2); HEMOGLOBIN 11.6 GM/dL (10.7-15.3); LYMPH % 26.1 % (8-40); MCH 29.7 pg (25.7-33.7); MEAN PLT VOLUME 11.2 fl (7.5-11.1); MONO % 11.7 % (3.8-10.2); NEUT % 61.1 % (42.8-82.8); PLATELET COUNT 92 10^3/uL (134-434); RBC 3.92 M/mm3 (3.60-5.2); RDW 14.8 % (11.6-15.6); WHITE BLOOD COUNT 7.3 K/mm3 (4.0-10.0)
[2024-10-16] MEDS ORDERED: AMPICILLIN NA/SULBACTAM NA 3 GM/100 ML BAG IVPB ONE (14:36)
[2024-10-16] MEDS: AMPICILLIN NA/SULBACTAM NA 3 GM in SODIUM CHLORIDE 100 ML IVPB ONE (14:41)
== END 2024-10-16 16:06 | disposition home or self-care (01) ==
LOC: JER 07:11
PROC: 3E03329 Introduction of Other Anti-infective into Peripheral Vein, Percutaneous Approach (ICD-10-PCS; principal; 2024-10-16)
PROC: 3E033GC Introduction of Other Therapeutic Substance into Peripheral Vein, Percutaneous Approach (ICD-10-PCS; 2024-10-16)
PROC: 3E033NZ Introduction of Analgesics, Hypnotics, Sedatives into Peripheral Vein, Percutaneous Approach (ICD-10-PCS; 2024-10-16)
DX: K52.9 Noninfective gastroenteritis and colitis, unspecified (principal); K62.5 Hemorrhage of anus and rectum; R11.10 Vomiting, unspecified; R10.32 Left lower quadrant pain
CPT/HCPCS: 36415; 74177-TC; 80053; 82272; 83690; 83735; 85025; 85610; 85730; 86803; 86850; 86900; 86901; 87389; 99285-25; J0131

== ENCOUNTER 2024-12-06 11:31 | Emergency (ER) | payer OTHER ==
[2024-12-06 11:48] VITALS: BP 109/72; PULSE 87; RESP 18; TEMP 100.9; BMI 27.6
[2024-12-06] MEDS: SODIUM CHLORIDE 0.9% 500 ML INFUS.BAG IV ONE (12:35)
[2024-12-06] MEDS: METOCLOPRAMIDE HCL INJECTION 10 MG/2 ML VIAL IVPB ONE (12:35)
[2024-12-06] MEDS: ACETAMINOPHEN 1000 MG/100 ML BAG IVPB ONE (12:40)
[2024-12-06] MEDS ORDERED: ACETAMINOPHEN INJECTION 100 ML ONE (12:53)
[2024-12-06] MEDS ORDERED: METOCLOPRAMIDE HCL INJECTION 10 MG/2 ML VIAL ONE (13:14)
[2024-12-06 13:19] LABS: HEMATOCRIT 39.7 % (32.4-45.2); HEMOGLOBIN 13.1 GM/dL (10.7-15.3); MCH 29.2 pg (25.7-33.7); MCHC 33.1 g/dl (32.0-36.0); MEAN CELL VOLUME 88.2 fl (80-96); MEAN PLT VOLUME 10.7 fl (7.5-11.1); PLATELET COUNT 96 10^3/uL (134-434); RDW 14.4 % (11.6-15.6); WHITE BLOOD COUNT 2.9 K/mm3 (4.0-10.0)
[2024-12-06 13:47] LABS: POTASSIUM 3.2 mmol/L (3.5-5.1)
[2024-12-06 13:49] LABS: ALBUMIN 3.5 g/dl (3.4-5.0); BLOOD UREA NITROGEN 12.5 mg/dL (7-18)
[2024-12-06 13:54] LABS: BILIRUBIN,TOTAL 0.7 mg/dL (0.2-1); TOT PROT 6.9 g/dl (6.4-8.2)
[2024-12-06 13:59] LABS: ANISOCYTOSIS 0; MACROCYTOSIS 0
[2024-12-06 14:00] LABS: ERYTHROCYTE SEDIMENTATION RATE 28 mm/hr (0-30)
[2024-12-06] MEDS ORDERED: KETOROLAC TROMETHAMINE 15 MG/ML VIAL ONE (14:23)
[2024-12-06 14:34] LABS: HIV INTERPRETATION NEGATIVE (NEGATIVE)
[2024-12-06] MEDS: KETOROLAC TROMETHAMINE 15 MG/ML VIAL IVPUSH ONE (14:35)
== END 2024-12-06 15:17 | disposition home or self-care (01) ==
LOC: JER 11:31
PROC: 3E033NZ Introduction of Analgesics, Hypnotics, Sedatives into Peripheral Vein, Percutaneous Approach (ICD-10-PCS; principal; 2024-12-06)
PROC: 3E0333Z Introduction of Anti-inflammatory into Peripheral Vein, Percutaneous Approach (ICD-10-PCS; 2024-12-06)
PROC: 3E033GC Introduction of Other Therapeutic Substance into Peripheral Vein, Percutaneous Approach (ICD-10-PCS; 2024-12-06)
DX: R51.9 Headache, unspecified (principal); R53.1 Weakness; R11.0 Nausea; R20.2 Paresthesia of skin; R50.9 Fever, unspecified
CPT/HCPCS: 0241U-QW; 36415; 80053; 85025; 85651; 86140; 86803; 87389; 96374; 96375; 99284-25; J0131